=== PATIENT | male | born 1965 | race Caucasian/White ===

== ENCOUNTER 2018-01-25 11:42 | Inpatient (IN) | payer OTHER ==
[2018-01-25 11:44] VITALS: BMI 27.8
[2018-01-25] MEDS ORDERED: Aspirin 325 mg EC Tablets PO STA (11:48)
[2018-01-25] MEDS ORDERED: Heparin25000 units/250ml 1/2NS 25,000 UNITS/250 ML BAG IV STA (11:48)
[2018-01-25 11:58] LABS: BASO % 0.3 % (0.0-2.0); EOS # 0.2 K/uL (0.0-0.7); EOS % 1.3 % (0.0-4.0); HEMOGLOBIN 14.5 g/dL (12.0-18.0); LYMPH % 31.3 % (20.0-40.0); MEAN CELL VOLUME 87.7 fL (80.0-94.0); MEAN CORPUSCULAR HEMOGLOBIN 29.6 pg (27.0-31.0); MEAN CORPUSCULAR HGB CONC 33.8 g/dL (33.0-37.0); MEAN PLATELET VOLUME 8.1 fL (7.2-11.7); MONO # 0.7 K/uL (0.0-0.8); MONO % 5.5 % (0.0-10.0); NEUT # 7.9 K/uL (1.8-7.0); NEUT % 61.6 % (50.0-75.0); NRBC % 0.1 % (0.0-2.0); RBC 4.9 Mil/uL (4.40-5.90); RED CELL DISTRIBUTION WIDTH 14.4 % (11.5-14.5); WHITE BLOOD COUNT 12.8 K/uL (4.8-10.8)
[2018-01-25] MEDS ORDERED: Midazolam 2 MG/2 ML VIAL ONE (12:00)
--- NOTE | 2018-01-25 12:00 | C.PDOC ---
History Of Present Illness 52 y/o male brought to ER by ambulance for evaluation of chest pain which began at 10:30 am today. 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 Patient reports that the pain was 10/10, he is unable to describe the pain. He notes that he was sweating when he had the pain. He notes that he has history of smoking. Currently, he denies having chest pain, shortness of breath, fever, chills, nausea, vomiting, leg swelling, hx of cardiac disease and stents. Of note, Code Heart was called at 11:40 AM. Time Seen by Provider: 01/25/18 11:47 Chief Complaint (Nursing): Chest Pain Past Medical History Reviewed: Historical Data, Nursing Documentation, Vital Signs - Medical History PMH: No Chronic Diseases Other Surgeries: Hx of surgeries Family History: States: No Known Family Hx Review Of Systems Except As Marked, All Systems Reviewed And Found Negative. Constitutional: Negative for: Fever, Chills Cardiovascular: Positive for: Chest Pain (currently resolved) Respiratory: Negative for: Shortness of Breath Gastrointestinal: Negative for: Nausea, Vomiting Physical Exam - Physical Exam Appears: Non-toxic, No Acute Distress, Other (awake,alert, oriented x3) Skin: Normal Color, Warm, Dry Head: Atraumatic, Normacephalic Eye(s): bilateral: Normal Inspection Neck: Supple Chest: Symmetrical Cardiovascular: Rhythm Regular Respiratory: Normal Breath Sounds, No Rales, No Rhonchi, No Wheezing Gastrointestinal/Abdominal: Normal Exam, Soft, No Tenderness, No Guarding, No Rebound Extremity: Normal ROM, Other (no pitting edema) Neurological/Psych: Oriented x3, Normal Speech ED Course And Treatment - Laboratory Results Result Diagrams: 01/25/18 11:54 01/25/18 11:54 ECG: Interpreted By Me, Viewed By Me ECG Rhythm: Sinus Rhythm Interpretation Of ECG: [facility] [place] EKG- Transmitted EKG - NSR [address] elevations in anterior leads and T wave inversions in inferior leads, (+)STEMI. EKG- NSR 82 bpm normal intervals, normal axises, ST elevations in anterior leads and T wave inversions in lateral leads, positive for ischemia Rate From EC Medical Decision Making Medical Decision Making: Plan: --Labs --ECG --CXR --Brilinta PO --Aspirin PO --Heparin IV Updates: 11:[address] Hillman, bottle house pumper, evaluated patient in ER, is taking pt to the laboratory courier. 11:50 AM Patient has been admitted under the service of for acute myocardial infarction and chest pain. Disposition - Disposition Disposition: HOSPITALIZED Disposition Time: 11:50 Condition: STABLE - POA Core Measure Indicators: Code Heart - Clinical Impression Clinical Impression: Chest pain, STEMI (ST elevation myocardial infarction) - Scribe Statement The provider has reviewed the documentation as recorded by the Carlyn Hughes Provider Attestation: All medical record entries made by the Carlyn were at my direction and personally dictated by me. I have reviewed the chart and agree that the record accurately reflects my personal performance of the history, physical exam, medical decision making, and the department course for this patient. I have also personally directed, reviewed, and agree with the discharge instructions and disposition.
[2018-01-25 12:06] LABS: INR 1.1; PROTHROMBIN TIME 11.8 SECONDS (9.7-12.2)
[2018-01-25 12:12] LABS: ALB/GLOB RATIO 1.6 (1.0-2.1); ALBUMIN 4.6 g/dL (3.5-5.0); ALT/SGPT 36 U/L (21-72); AST/SGOT 34 U/L (17-59); BLOOD UREA NITROGEN 18 mg/dL (9-20); CALCIUM 9.3 mg/dl (8.6-10.4); GFR NON-AFRICAN AMERICAN > 60
[2018-01-25] MEDS ORDERED: Iodixanol 320 MG/ML 100 ML BOTTLE IV ONE ×2 (12:12→12:35)
--- NOTE | 2018-01-25 13:23 | CP.PCM.PN ---
Subjective - Date & Time of Evaluation Date of Evaluation: 01/25/18 Time of Evaluation: 11:30 - Subjective Subjective: Code heart- patient en route to ED Patient is a 52 yo male with no significant history who was brought to ED by ambulance for chest pain. 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 He states that earlier in the day, he was dizzy and fell, hitting his nose. Patient also complained of sweating. he denies previous [place] or cardiac history. PMH: h/o Manrique's palsy PSH: appendectomy many yrs ago Meds: none All: NKA FH: mother- [place] SH: Drinks alcohol on weekends Former smoker Denies illicit drugs PMD: none Objective - Vital Signs/Intake and Output Vital Signs (last 24 hours): Temp Pulse Resp BP Pulse Ox 98.2 F 82 18 139/85 98 01/25/18 11:50 01/25/18 11:50 01/25/18 11:50 01/25/18 11:50 01/25/18 11:50 - Labs Labs: 01/25/18 11:54 01/25/18 11:54 PT 11.8 SECONDS (9.7-12.2) 01/25/18 11:54 INR 1.1 01/25/18 11:54 APTT 30 SECONDS (21-34) 01/25/18 11:54 - Constitutional Appears: No Acute Distress - Head Exam Head Exam: ATRAUMATIC, NORMAL INSPECTION - Eye Exam Eye Exam: EOMI, Normal appearance, PERRL - ENT Exam ENT Exam: Mucous Membranes Moist - Neck Exam Neck Exam: Normal Inspection - Respiratory Exam Respiratory Exam: Clear to Ausculation Bilateral, NORMAL BREATHING PATTERN. absent: Respiratory Distress - Cardiovascular Exam Cardiovascular Exam: REGULAR RHYTHM, +S1, +S2 - GI/Abdominal Exam GI & Abdominal Exam: Soft. absent: Tenderness - Rectal Exam Rectal Exam: Deferred - Extremities Exam Extremities Exam: Normal Inspection - Back Exam Back Exam: NORMAL INSPECTION - Neurological Exam Neurological Exam: Alert, Awake, CN II-XII Intact, Oriented x3 - Psychiatric Exam Psychiatric exam: Normal Affect, Normal Mood - Skin Skin Exam: Dry, Intact, Normal Color, Warm Assessment and Plan - Assessment and Plan (Free Text) Assessment: Patient is 52 yo male who was brought in with chest pain. Code heart called for ST elevations on EMS EKG. Patient taken to poultry farm laborer. Plan: STEMI - Activate code heart - Given full dose ASA and nitroglycerin en route - Brilinta 180 mg PO stat - Heparin 5000 units IV stat - Cardiology consulted (Rafy)- cardiac cath
--- NOTE | 2018-01-25 13:39 | CP.PCM.CON ---
<Bernie Turner - Last Filed: 01/25/18 15:46> History of Present Illness - History of Present Illness History of Present Illness: Cardiology Consult Note This is a 52 year old male with past medical history of swartz's palsy (2007), tobacco and cocaine use disorder, who was BIBA as a CODE HEART with an anterior wall ID noted on EKG. Patient reports he has been experiencing intermittent chest pain for the past month. He had a prior incident his month, where the chest pain was severe enough to cause syncope, resulting in the patient falling to the floor and breaking his nose. Despite this incident, the patient has not followed up with a physician or ED. This morning the patient was working, cleaning a sidewalk when he started to experience severe chest pain, associated with dyspnea and diaphoresis. Patient went home and immediately called the ambulance. En route, patient was given aspirin 325mg and nitro. In the ED, repeat EKG showed anterior wall ID. He was given Brilinta, bolused heparin and taken to the cathode builder. PMHx: As noted above PSHx: Appendectomy Meds: Denied All: NKDA SHx: Admitted to [facility] for 35 years, admits to drinking 2-4 shots of black label, 3-5 beers every Tuesday and Tuesday, admitted to cocaine use FHx: Mother - ID 50s, Diabetes; Father - diabetes; Brother -diabetes Review of Systems - Review of Systems Review of Systems: - Constitutional Constitutional: absent: Chills, Fever - EENT Eyes: absent: Change in Vision, Loss of Vision Ears: absent: Ear Discharge, Tinnitus Nose/Mouth/Throat: absent: Epistaxis, Hoarsness - Cardiovascular Cardiovascular: Chest Pain, Chest Pain with Activity, Diaphoresis, Dyspnea, Palpitations, Other. absent: Irregular Heart Rhythm, Pain Radiating to Arm/Neck/Jaw, Leg Edema, Pedal Edema, Radiating Pain, Rapid Heart Rate, Slow Heart Rate, Syncope - Respiratory Respiratory: absent: Cough, Dyspnea, Wheezing - Gastrointestinal Gastrointestinal: absent: Abdominal Pain, Diarrhea, Nausea, Vomiting - Genitourinary Genitourinary: absent: Dysuria, Hematuria - Neurological Neurological: absent: Numbness, Focal Weakness, Syncope, Tremor, Weakness - Psychiatric Psychiatric: absent: Anhedonia, Anxiety, Depression - Endocrine Endocrine: absent: Polydipsia, Polyphagia, Polyuria - Hematologic/Lymphatic Hematologic: absent: Easy Bleeding, Easy Bruising, Lymphadenopathy Past Patient History - Past Social History Smoking Status: Heavy Smoker > 10 Cigarettes Daily - PSYCHIATRIC Hx Substance Use: No - SURGICAL HISTORY Hx Surgeries: Yes Hx Appendectomy: Yes - ANESTHESIA Hx Anesthesia: Yes Hx Anesthesia Reactions: No Hx Malignant Hyperthermia: No Meds Allergies/Adverse Reactions: Allergies Allergy/AdvReac Type Severity Reaction Status Date / Time No Known Allergies Allergy Verified 01/25/18 11:44 - Medications Medications: Current Medications Aspirin (Aspirin Chewable) 81 mg PO DAILY SUDEEP Carvedilol (Coreg) 3.25 mg PO BID [facility] Sodium Chloride (Sodium Chloride 0.9%) 1,000 mls @ 80 mls/hr IV .[id number] SUDEEP Stop: 01/26/18 02:01 Losartan Potassium (Cozaar) 12.5 mg PO DAILY SUDEEP Rosuvastatin Calcium (Crestor) 40 mg PO HS SUDEEP Ticagrelor (Brilinta) 90 mg PO BID SUDEEP Physical Exam - Additional Findings Additional findings: - Constitutional Appears: No Acute Distress - Head Exam Head Exam: NORMAL INSPECTION, NORMOCEPHALIC - Eye Exam Eye Exam: EOMI, PERRL Pupil Exam: NORMAL ACCOMODATION - ENT Exam ENT Exam: Mucous Membranes Moist - Respiratory Exam Respiratory Exam: Clear to Auscultation Bilateral, NORMAL BREATHING PATTERN. absent: Decreased Breath Sounds, Wheezes - Cardiovascular Exam Cardiovascular Exam: +S1, +S2 - GI/Abdominal Exam GI & Abdominal Exam: Normal Bowel Sounds, Soft. absent: Distended, Tenderness - Extremities Exam Extremities exam: right groin dressing intact, some blood noted, no hematoma . Positive for: normal inspection, pedal pulses present. Negative for: pedal edema, tenderness - Back Exam Back exam: NORMAL INSPECTION - Neurological Exam Neurological exam: Alert, Oriented x3 - Psychiatric Exam Psychiatric exam: Normal Affect, Normal Mood - Skin Skin Exam: Dry, Intact, Normal Color, Warm Results - Vital Signs Recent Vital Signs: Last Vital Signs Temp 98.2 F 01/25/18 11:50 Pulse 82 01/25/18 11:50 Resp 18 01/25/18 11:50 BP 139/85 01/25/18 11:50 Pulse Ox 98 01/25/18 11:50 - Labs Result Diagrams: 01/25/18 11:54 11/28/18 11:54 Labs: Laboratory Results - last 24 hr 01/25/18 01/25/18 01/25/18 11:54 11:54 11:54 WBC 12.8 H RBC 4.90 Hgb 14.5 Hct 43.0 MCV 87.7 MCH 29.6 MCHC 33.8 RDW 14.4 Plt Count 274 MPV 8.1 Neut % (Auto) 61.6 Lymph % (Auto) 31.3 Stearns % (Auto) 5.5 Eos % (Auto) 1.3 Baso % (Auto) 0.3 Neut # (Auto) 7.9 H Lymph # (Auto) 4.0 Stearns # (Auto) 0.7 Eos # (Auto) 0.2 Baso # (Auto) 0.0 PT 11.8 INR 1.1 APTT 30 Sodium 137 Potassium 3.9 Chloride 103 Carbon Dioxide 22 Anion Gap 16 BUN 18 Creatinine 0.8 Est GFR ( Amer) > 60 Est GFR (Non-Af Amer) > 60 Random Glucose 163 H Calcium 9.3 Total Bilirubin 0.5 AST 34 ALT 36 Alkaline Phosphatase 76 Troponin I Total Protein 7.4 Albumin 4.6 Globulin 2.9 Albumin/Globulin Ratio 1.6 Blood Type Antibody Screen 01/25/18 01/25/18 11:54 11:54 WBC RBC Hgb Hct MCV MCH MCHC RDW Plt Count MPV Neut % (Auto) Lymph % (Auto) Stearns % (Auto) Eos % (Auto) Baso % (Auto) Neut # (Auto) Lymph # (Auto) Stearns # (Auto) Eos # (Auto) Baso # (Auto) PT INR APTT Sodium Potassium Chloride Carbon Dioxide Anion Gap BUN Creatinine Est GFR ( Amer) Est GFR (Non-Af Amer) Random Glucose Calcium Total Bilirubin AST ALT Alkaline Phosphatase Troponin I 0.0130 Total Protein Albumin Globulin Albumin/Globulin Ratio Blood Type B POSITIVE Antibody Screen Negative Assessment & Plan - Assessment and Plan (Free Text) Plan: Anterior Wall STEMI Imaging: - EKG (field): anterior wall ID - Repeat EKG in ED: anterior wall ID - S/P Cardiac Cath: Promixal LAD 99%, Distal LAD 99%, Circumflex 60%, RCA 100%, LVEF: 30%. 2 ISRA[place] placed: 1 proximal and 1 distal LAD - ECHO: ordered, pending results Management: - Started ASA 81mg daily, Brilinta 90mg PO BID, Cozaar 100mg PO daily, Crestor 40mg PO QHS - Bedrest 6 hours, monitor right groin for bleeding, NS @ 80cc/hr for 12 hours; f/u serial ROMIs and EKGs - Educated and stressed the importance of lifestyle changes: diet, exercise, weight loss, medication compliance, smoking cessation, drinking cessation, and cessation of cocaine use - RCA PCI placement as outpatient Cocaine Use Disorder - Refrain from beta tiffanie use - UDS ordered Impaired Glucose Tolerance - Encourage low carb diet, exercise, and weight loss - Hemoglobin A1C: 5.9 Mixed Hyperlipidemia - Cholesterol: 241, LDL: 164 Management: - Encourage low carb diet, exercise, and weight loss - Started Crestor 40mg PO QHS Tobacco Use Disorder - 1 PPD / 35 years - Smoking cessation - Nicotine patch started Case discussed with Dr. Hillman, Bernie Turner DO, PGY2 <Ash Hillman - Last Filed: 01/25/18 20:05> Meds - Medications Medications: Current Medications Aspirin (Aspirin Chewable) 81 mg PO DAILY SUDEEP Enoxaparin Sodium (Lovenox) 40 mg SC DAILY SUDEEP Sodium Chloride (Sodium Chloride 0.9%) 1,000 mls @ 80 mls/hr IV .[id number] SUDEEP Stop: 01/26/18 02:01 Last Admin: 01/25/18 14:05 Dose: 80 mls/hr Losartan Potassium (Cozaar) 12.5 mg PO DAILY SUDEEP Nicotine (Nicoderm Cq) 1 patch TD DAILY SUDEEP Rosuvastatin Calcium (Crestor) 40 mg PO HS SUDEEP Ticagrelor (Brilinta) 90 mg PO BID [facility] Last Admin: 01/25/18 17:29 Dose: 90 mg Results - Vital Signs Recent Vital Signs: Last Vital Signs Temp 98 F 01/25/18 18:00 Pulse 79 01/25/18 18:10 Resp 11 L 01/25/18 18:10 BP 154/78 H 01/25/18 18:00 Pulse Ox 97 01/25/18 18:10 - Labs Result Diagrams: 01/25/18 11:54 01/25/18 11:54 Labs: Laboratory Results - last 24 hr 01/25/18 01/25/18 01/25/18 11:54 11:54 11:54 WBC 12.8 H RBC 4.90 Hgb 14.5 Hct 43.0 MCV 87.7 MCH 29.6 MCHC 33.8 RDW 14.4 Plt Count 274 MPV 8.1 Neut % (Auto) 61.6 Lymph % (Auto) 31.3 Stearns % (Auto) 5.5 Eos % (Auto) 1.3 Baso % (Auto) 0.3 Neut # (Auto) 7.9 H Lymph # (Auto) 4.0 Stearns # (Auto) 0.7 Eos # (Auto) 0.2 Baso # (Auto) 0.0 PT 11.8 INR 1.1 APTT 30 Sodium 137 Potassium 3.9 Chloride 103 Carbon Dioxide 22 Anion Gap 16 BUN 18 Creatinine 0.8 Est GFR ( Amer) > 60 Est GFR (Non-Af Amer) > 60 Random Glucose 163 H Hemoglobin A1c Calcium 9.3 Total Bilirubin 0.5 AST 34 ALT 36 Alkaline Phosphatase 76 Total Creatine Kinase CK-MB (Mass) Troponin I Total Protein 7.4 Albumin 4.6 Globulin 2.9 Albumin/Globulin Ratio 1.6 Triglycerides Cholesterol LDL Cholesterol Direct HDL Cholesterol TSH 3rd Generation Blood Type Antibody Screen 01/25/18 01/25/18 01/25/18 11:54 11:54 14:09 WBC RBC Hgb Hct MCV MCH MCHC RDW Plt Count MPV Neut % (Auto) Lymph % (Auto) Stearns % (Auto) Eos % (Auto) Baso % (Auto) Neut # (Auto) Lymph # (Auto) Stearns # (Auto) Eos # (Auto) Baso # (Auto) PT INR APTT Sodium Potassium Chloride Carbon Dioxide Anion Gap BUN Creatinine Est GFR ( Amer) Est GFR (Non-Af Amer) Random Glucose Hemoglobin A1c Calcium Total Bilirubin AST ALT Alkaline Phosphatase Total Creatine Kinase CK-MB (Mass) Troponin I 0.0130 Total Protein Albumin Globulin Albumin/Globulin Ratio Triglycerides 139 Cholesterol 241 H LDL Cholesterol Direct 164 H HDL Cholesterol 40 TSH 3rd Generation 1.82 Blood Type B POSITIVE Antibody Screen Negative 01/25/18 01/25/18 14:09 14:09 WBC RBC Hgb Hct MCV MCH MCHC RDW Plt Count MPV Neut % (Auto) Lymph % (Auto) Stearns % (Auto) Eos % (Auto) Baso % (Auto) Neut # (Auto) Lymph # (Auto) Stearns # (Auto) Eos # (Auto) Baso # (Auto) PT INR APTT Sodium Potassium Chloride Carbon Dioxide Anion Gap BUN Creatinine Est GFR ( Amer) Est GFR (Non-Af Amer) Random Glucose Hemoglobin A1c 5.9 Calcium Total Bilirubin AST ALT Alkaline Phosphatase Total Creatine Kinase 113 CK-MB (Mass) 1.06 Troponin I < 0.0120 Total Protein Albumin Globulin Albumin/Globulin Ratio Triglycerides Cholesterol LDL Cholesterol Direct HDL Cholesterol TSH 3rd Generation Blood Type Antibody Screen Assessment & Plan - Assessment and Plan (Free Text) Plan: s/p Code heart Agree with the plan
[2018-01-25] MEDS ORDERED: Sodium Chloride 0.9% 1,000 ML IV SCH (14:00)
[2018-01-25 14:36] LABS: CK-MB 1.06 ng/mL (0.0-3.38)
--- NOTE | 2018-01-25 14:38 | CP.PCM.CON ---
<CaraLane - Last Filed: 01/25/18 15:49> History of Present Illness - History of Present Illness History of Present Illness: PGY-[address] Note [address] Guan Patient is a 52 yo male with PMHx of Manrique's palsy (2007), tobacco and cocaine use disorder, who presented to the ED as a Code Heart with an anterior wall WA noted on EKG. Patient reports he has been experiencing intermittent chest pain for the past month. He had a prior incident his month, where the chest pain was severe enough to cause syncope, resulting in the patient falling to the floor and breaking his nose. Despite this incident, the patient has not followed up with a physician or ED. This morning the patient was working, cleaning a sidewalk when he started to experience severe chest pain, associated with dyspnea and diaphoresis. Patient went home and immediately called the ambulance. Patient was given ASA 325 mg and nitroglycerin on the field. In the ED, repeat EKG showed anterior wall WA. He was given Brilinta, heparin bolus and taken to the laboratory sampler. Catheterization demonstrated 99% occlusion of proximal and distal LAD, Circumflex 60%, RCA 100%, LVEF: 30%. Patient is s/p 2 ISRAEL placement, 1 proximal and 1 distal LAD. In the ICU for further monitoring. PMHx: Manrique's palsy, substance abuse PSHx: Appendectomy Home Medications: Denied Allergies: NKDA Social Hx: Admitted to [facility] for 35 years, admits to drinking 2-4 shots of black label, 3-5 beers every Tuesday and Tuesday, admitted to cocaine use Family Hx: Mother - [place] 50s, Diabetes; Father - diabetes; Brother -diabetes Review of Systems - Review of Systems All systems: reviewed and no additional remarkable complaints except Review of Systems: as per HPI Past Patient History - Past Social History Smoking Status: Heavy Smoker > 10 Cigarettes Daily - PSYCHIATRIC Hx Substance Use: No - SURGICAL HISTORY Hx Surgeries: Yes Hx Appendectomy: Yes - ANESTHESIA Hx Anesthesia: Yes Hx Anesthesia Reactions: No Hx Malignant Hyperthermia: No Meds Allergies/Adverse Reactions: Allergies Allergy/AdvReac Type Severity Reaction Status Date / Time No Known Allergies Allergy Verified 01/25/18 11:44 - Medications Medications: Current Medications Aspirin (Aspirin Chewable) 81 mg PO DAILY [facility]EP Sodium Chloride (Sodium Chloride 0.9%) 1,000 mls @ 80 mls/hr IV .[id number] [facility] Stop: 01/26/18 02:01 Last Admin: 01/25/18 14:05 Dose: 80 mls/hr Losartan Potassium (Cozaar) 12.5 mg PO DAILY [facility] Rosuvastatin Calcium (Crestor) 40 mg PO HS [facility] Ticagrelor (Brilinta) 90 mg PO BID [facility] Physical Exam - Constitutional Appears: Non-toxic, No Acute Distress - Head Exam Head Exam: ATRAUMATIC, NORMAL INSPECTION, NORMOCEPHALIC - Eye Exam Eye Exam: EOMI, Normal appearance Pupil Exam: NORMAL ACCOMODATION - ENT Exam ENT Exam: Mucous Membranes Moist, Normal Exam - Neck Exam Neck exam: Positive for: Normal Inspection - Respiratory Exam Respiratory Exam: Clear to Auscultation Bilateral, NORMAL BREATHING PATTERN. absent: Accessory Muscle Use, Rales, Rhonchi, Wheezes, Respiratory Distress, Stridor - Cardiovascular Exam Cardiovascular Exam: +S1, +S2 - GI/Abdominal Exam GI & Abdominal Exam: Normal Bowel Sounds, Soft. absent: Distended, Firm, Guarding, Rebound, Rigid, Tenderness - Extremities Exam Extremities exam: Positive for: normal capillary refill, pedal pulses present. Negative for: calf tenderness, joint swelling, pedal edema Additional comments: right groin dressing intact, some blood noted, no hematoma - Back Exam Back exam: NORMAL INSPECTION - Neurological Exam Neurological exam: Alert, Oriented x3 - Psychiatric Exam Psychiatric exam: Normal Affect, Normal Mood - Skin Skin Exam: Dry, Intact, Normal Color, Warm Results - Vital Signs Recent Vital Signs: Last Vital Signs Temp 98.2 F 01/25/18 11:50 Pulse 82 01/25/18 11:50 Resp 18 01/25/18 11:50 BP 139/85 01/25/18 11:50 Pulse Ox 98 01/25/18 11:50 - Labs Result Diagrams: 01/25/18 11:54 01/25/18 11:54 Labs: Laboratory Results - last 24 hr 01/25/18 01/25/18 01/25/18 11:54 11:54 11:54 WBC 12.8 H RBC 4.90 Hgb 14.5 Hct 43.0 MCV 87.7 MCH 29.6 MCHC 33.8 RDW 14.4 Plt Count 274 MPV 8.1 Neut % (Auto) 61.6 Lymph % (Auto) 31.3 [place] % (Auto) 5.5 Eos % (Auto) 1.3 Baso % (Auto) 0.3 Neut # (Auto) 7.9 H Lymph # (Auto) 4.0 [place] # (Auto) 0.7 Eos # (Auto) 0.2 Baso # (Auto) 0.0 PT 11.8 INR 1.1 APTT 30 Sodium 137 Potassium 3.9 Chloride 103 Carbon Dioxide 22 Anion Gap 16 BUN 18 Creatinine 0.8 Est GFR ( Amer) > 60 Est GFR (Non-Af Amer) > 60 Random Glucose 163 H Hemoglobin A1c Calcium 9.3 Total Bilirubin 0.5 AST 34 ALT 36 Alkaline Phosphatase 76 Total Creatine Kinase CK-MB (Mass) Troponin I Total Protein 7.4 Albumin 4.6 Globulin 2.9 Albumin/Globulin Ratio 1.6 Triglycerides Cholesterol LDL Cholesterol Direct HDL Cholesterol Blood Type Antibody Screen 01/25/18 01/25/18 01/25/18 11:54 11:54 14:09 WBC RBC Hgb Hct MCV MCH MCHC RDW Plt Count MPV Neut % (Auto) Lymph % (Auto) [place] % (Auto) Eos % (Auto) Baso % (Auto) Neut # (Auto) Lymph # (Auto) [place] # (Auto) Eos # (Auto) Baso # (Auto) PT INR APTT Sodium Potassium Chloride Carbon Dioxide Anion Gap BUN Creatinine Est GFR ( Amer) Est GFR (Non-Af Amer) Random Glucose Hemoglobin A1c Calcium Total Bilirubin AST ALT Alkaline Phosphatase Total Creatine Kinase CK-MB (Mass) Troponin I 0.0130 Total Protein Albumin Globulin Albumin/Globulin Ratio Triglycerides 139 Cholesterol 241 H LDL Cholesterol Direct 164 H HDL Cholesterol 40 Blood Type B POSITIVE Antibody Screen Negative 01/25/18 01/25/18 14:09 14:09 WBC RBC Hgb Hct MCV MCH MCHC RDW Plt Count MPV Neut % (Auto) Lymph % (Auto) [place] % (Auto) Eos % (Auto) Baso % (Auto) Neut # (Auto) Lymph # (Auto) [place] # (Auto) Eos # (Auto) Baso # (Auto) PT INR APTT Sodium Potassium Chloride Carbon Dioxide Anion Gap BUN Creatinine Est GFR ( Amer) Est GFR (Non-Af Amer) Random Glucose Hemoglobin A1c 5.9 Calcium Total Bilirubin AST ALT Alkaline Phosphatase Total Creatine Kinase 113 CK-MB (Mass) 1.06 Troponin I < 0.0120 Total Protein Albumin Globulin Albumin/Globulin Ratio Triglycerides Cholesterol LDL Cholesterol Direct HDL Cholesterol Blood Type Antibody Screen Assessment & Plan - Assessment and Plan (Free Text) Assessment: 52 year old male with past medical history of manrique's palsy (2007), tobacco and cocaine use disorder, who was BIBA as a CODE HEART with an anterior wall WA noted on EKG. given Brilinta, bolused heparin and taken to the laboratory sampler. Patient s/p catheterization: Promixal LAD 99%, Distal LAD 99%, Circumflex 60%, RCA 100%, LVEF: 30%. 2 ISRAEL placed: 1 proximal and 1 distal LAD. Remains in ICU for further monitoring. Plan: Neuro: -stable; patient alert and oriented x 3 -no focal deficits noted CV: Anterior Wall STEMI - EKG (field): anterior wall WA - Repeat EKG in ED: anterior wall WA - S/P Cardiac Cath: Promixal LAD 99%, Distal LAD 99%, Circumflex 60%, RCA 100%, LVEF: 30%. 2 ISRAEL placed: 1 proximal and 1 distal LAD - ECHO: ordered, pending results - ASA 81mg daily, Brilinta 90mg PO BID, Cozaar 100mg PO daily, Crestor 40mg PO QHS - Bedrest 6 hours, monitor right groin for bleeding, NS @ 80cc/hr for 12 hours; f/u serial ROMIs and EKGs - Educated and stressed the importance of lifestyle changes: diet, exercise, weight loss, medication compliance, smoking cessation, drinking cessation, and cessation of cocaine use - RCA PCI placement as outpatient Cocaine Use Disorder - Refrain from beta tiffanie use - UDS ordered Mixed Hyperlipidemia - Cholesterol: 241, LDL: 164 - Encourage low carb diet, exercise, and weight loss - Started Crestor 40mg PO QHS Pulm: Tobacco Use Disorder - 1 PPD / 35 years - Smoking cessation - Nicotine patch started Endo: Impaired Glucose Tolerance - Encourage low carb diet, exercise, and weight loss - Hemoglobin A1C: 5.9 PPx, Diet, Disposition - DVT ppx: lovenox, scds - Diet: HHD Case discussed with Dr. Roge Marroquin DO, PGY-1 <Ramírez Guan - Last Filed: 01/25/18 17:29> Meds - Medications Medications: Current Medications Aspirin (Aspirin Chewable) 81 mg PO DAILY [facility] Enoxaparin Sodium (Lovenox) 40 mg SC DAILY [facility] Sodium Chloride (Sodium Chloride 0.9%) 1,000 mls @ 80 mls/hr IV .[id number] [facility]EP Stop: 01/26/18 02:01 Last Admin: 01/25/18 14:05 Dose: 80 mls/hr Losartan Potassium (Cozaar) 12.5 mg PO DAILY [facility] Nicotine (Nicoderm Cq) 1 patch TD DAILY [facility] Rosuvastatin Calcium (Crestor) 40 mg PO HS [facility] Ticagrelor (Brilinta) 90 mg PO BID [facility] Results - Vital Signs Recent Vital Signs: Last Vital Signs Temp 98 F 01/25/18 17:00 Pulse 69 01/25/18 17:10 Resp 12 01/25/18 17:10 BP 147/78 01/25/18 17:00 Pulse Ox 100 01/25/18 17:10 - Labs Result Diagrams: 01/25/18 11:54 01/25/18 11:54 Labs: Laboratory Results - last 24 hr 01/25/18 01/25/18 01/25/18 11:54 11:54 11:54 WBC 12.8 H RBC 4.90 Hgb 14.5 Hct 43.0 MCV 87.7 MCH 29.6 MCHC 33.8 RDW 14.4 Plt Count 274 MPV 8.1 Neut % (Auto) 61.6 Lymph % (Auto) 31.3 [place] % (Auto) 5.5 Eos % (Auto) 1.3 Baso % (Auto) 0.3 Neut # (Auto) 7.9 H Lymph # (Auto) 4.0 [place] # (Auto) 0.7 Eos # (Auto) 0.2 Baso # (Auto) 0.0 PT 11.8 INR 1.1 APTT 30 Sodium 137 Potassium 3.9 Chloride 103 Carbon Dioxide 22 Anion Gap 16 BUN 18 Creatinine 0.8 Est GFR ( Amer) > 60 Est GFR (Non-Af Amer) > 60 Random Glucose 163 H Hemoglobin A1c Calcium 9.3 Total Bilirubin 0.5 AST 34 ALT 36 Alkaline Phosphatase 76 Total Creatine Kinase CK-MB (Mass) Troponin I Total Protein 7.4 Albumin 4.6 Globulin 2.9 Albumin/Globulin Ratio 1.6 Triglycerides Cholesterol LDL Cholesterol Direct HDL Cholesterol TSH 3rd Generation Blood Type Antibody Screen 01/25/18 01/25/18 01/25/18 11:54 11:54 14:09 WBC RBC Hgb Hct MCV MCH MCHC RDW Plt Count MPV Neut % (Auto) Lymph % (Auto) [place] % (Auto) Eos % (Auto) Baso % (Auto) Neut # (Auto) Lymph # (Auto) [place] # (Auto) Eos # (Auto) Baso # (Auto) PT INR APTT Sodium Potassium Chloride Carbon Dioxide Anion Gap BUN Creatinine Est GFR ( Amer) Est GFR (Non-Af Amer) Random Glucose Hemoglobin A1c Calcium Total Bilirubin AST ALT Alkaline Phosphatase Total Creatine Kinase CK-MB (Mass) Troponin I 0.0130 Total Protein Albumin Globulin Albumin/Globulin Ratio Triglycerides 139 Cholesterol 241 H LDL Cholesterol Direct 164 H HDL Cholesterol 40 TSH 3rd Generation 1.82 Blood Type B POSITIVE Antibody Screen Negative 01/25/18 01/25/18 14:09 14:09 WBC RBC Hgb Hct MCV MCH MCHC RDW Plt Count MPV Neut % (Auto) Lymph % (Auto) [place] % (Auto) Eos % (Auto) Baso % (Auto) Neut # (Auto) Lymph # (Auto) [place] # (Auto) Eos # (Auto) Baso # (Auto) PT INR APTT Sodium Potassium Chloride Carbon Dioxide Anion Gap BUN Creatinine Est GFR ( Amer) Est GFR (Non-Af Amer) Random Glucose Hemoglobin A1c 5.9 Calcium Total Bilirubin AST ALT Alkaline Phosphatase Total Creatine Kinase 113 CK-MB (Mass) 1.06 Troponin I < 0.0120 Total Protein Albumin Globulin Albumin/Globulin Ratio Triglycerides Cholesterol LDL Cholesterol Direct HDL Cholesterol TSH 3rd Generation Blood Type Antibody Screen Attending/Attestation - Attestation I have personally seen and examined this patient.: Yes I have fully participated in the care of the patient.: Yes I have reviewed all pertinent clinical information: Yes Notes (Text): 01/25/18 17:28 patient seen and examined S/P Cardiac Cath: Promixal LAD 99%, Distal LAD 99%, Circumflex 60%, RCA 100%, LVEF: 30%. 2 ISRAEL placed: 1 proximal and 1 distal LAD Continue anticoagulation Echocardiogram
--- NOTE | 2018-01-25 14:39 | RAD ---
Date of service: 01/25/2018 PROCEDURE: CHEST RADIOGRAPH, 1 VIEW HISTORY: chest pain COMPARISON: None available. FINDINGS: LUNGS: Clear. PLEURA: No pneumothorax or pleural fluid seen. CARDIOVASCULAR: No aortic atherosclerotic calcification present. Normal. OSSEOUS STRUCTURES: No significant abnormalities. VISUALIZED UPPER ABDOMEN: Normal. OTHER FINDINGS: None. IMPRESSION: No active disease.
[2018-01-25] MEDS ORDERED: Eptifibatide 20 mg/10mL Inj IVP ONE (18:00)
[2018-01-25 20:34] LABS: BARBITURATES, UR NEGATIVE (NEGATIVE); OPIATES, UR NEGATIVE (NEGATIVE); PHENCYCLIDINE, UR NEGATIVE (NEGATIVE)
[2018-01-25 20:37] LABS: BENZODIAZEPINES, UR POSITIVE (NEGATIVE)
[2018-01-25 21:43] LABS: CK-MB 31.2 ng/mL (0.0-3.38)
[2018-01-25 21:47] LABS: TROPONIN I 10.5 ng/mL (0.00-0.120)
[2018-01-26 05:58] LABS: BASO # 0.1 K/uL (0.0-0.2); BASO % 0.5 % (0.0-2.0); EOS # 0.2 K/uL (0.0-0.7); EOS % 1.2 % (0.0-4.0); HEMOGLOBIN 13.6 g/dL (12.0-18.0); LYMPH # 3.3 K/uL (1.0-4.3); LYMPH % 25.2 % (20.0-40.0); MEAN CELL VOLUME 86.8 fL (80.0-94.0); MEAN CORPUSCULAR HEMOGLOBIN 30.4 pg (27.0-31.0); MEAN PLATELET VOLUME 8.2 fL (7.2-11.7); MONO # 0.8 K/uL (0.0-0.8); MONO % 6.4 % (0.0-10.0); NEUT # 8.8 K/uL (1.8-7.0); NEUT % 66.7 % (50.0-75.0); RBC 4.46 Mil/uL (4.40-5.90); RED CELL DISTRIBUTION WIDTH 14.3 % (11.5-14.5); WHITE BLOOD COUNT 13.3 K/uL (4.8-10.8)
[2018-01-26 06:20] LABS: ALB/GLOB RATIO 1.5 (1.0-2.1); ALBUMIN 3.6 g/dL (3.5-5.0); ALT/SGPT 41 U/L (21-72); AST/SGOT 67 U/L (17-59); BLOOD UREA NITROGEN 14 mg/dL (9-20); CALCIUM 8.2 mg/dl (8.6-10.4); CK-MB 18.3 ng/mL (0.0-3.38); GFR NON-AFRICAN AMERICAN > 60
--- NOTE | 2018-01-26 08:03 | CP.CCUPN ---
CCU Subjective - Physician Review Critical Care Time Spent (in minutes): 35 CCU Objective - Vital Signs / Intake & Output Vital Signs (Last 4 hours): Vital Signs Pulse Resp BP Pulse Ox 01/26/18 07:00 76 15 99 01/26/18 06:43 70 13 132/71 100 01/26/18 06:00 69 12 99 01/26/18 05:43 121/65 01/26/18 05:00 70 13 98 01/26/18 04:43 73 14 123/63 98 Intake and Output (Last 8hrs): Intake & Output 01/25/18 01/26/18 01/26/18 22:59 06:59 14:59 Intake Total 680 560 Output Total 650 400 Balance 30 160 Weight 211 lb Intake: Intake, IV Amount 480 320 Left Antecubital 480 320 Oral 200 240 Output: Urine 650 400 Urine, Voided 650 400 - Medications Active Medications: Active Medications Generic Name Dose Route Start Last Admin Trade Name Freq PRN Reason Stop Dose Admin Aspirin 81 mg 01/26/18 10:00 Aspirin Chewable PO DAILY [facility] Enoxaparin Sodium 40 mg 01/26/18 10:00 Lovenox SC DAILY [facility] Losartan Potassium 12.5 mg 01/26/18 10:00 Cozaar PO DAILY [facility] Nicotine 1 patch 01/26/18 10:00 Nicoderm Cq TD DAILY [facility] Rosuvastatin Calcium 40 mg 01/25/18 22:00 01/25/18 21:26 Crestor PO 40 mg HS SUDEEP Administration Ticagrelor 90 mg 01/25/18 18:00 01/25/18 17:29 Brilinta PO 90 mg BID SUDEEP Administration - Patient Studies Lab Studies: Lab Studies 01/26/18 01/26/18 01/25/18 Range/Units 05:45 05:45 21:41 WBC 13.3 H (4.8-10.8) K/uL RBC 4.46 (4.40-5.90) Mil/uL Hgb 13.6 (12.0-18.0) g/dL Hct 38.7 (35.0-51.0) % MCV 86.8 (80.0-94.0) fL MCH 30.4 (27.0-31.0) pg MCHC 35.0 (33.0-37.0) g/dL RDW 14.3 (11.5-14.5) % Plt Count 267 (130-400) K/uL MPV 8.2 (7.2-11.7) fL Neut % (Auto) 66.7 (50.0-75.0) % Lymph % (Auto) 25.2 (20.0-40.0) % [place] % (Auto) 6.4 (0.0-10.0) % Eos % (Auto) 1.2 (0.0-4.0) % Baso % (Auto) 0.5 (0.0-2.0) % Neut # (Auto) 8.8 H (1.8-7.0) K/uL Lymph # (Auto) 3.3 (1.0-4.3) K/uL [place] # (Auto) 0.8 (0.0-0.8) K/uL Eos # (Auto) 0.2 (0.0-0.7) K/uL Baso # (Auto) 0.1 (0.0-0.2) K/uL PT (9.7-12.2) SECONDS INR APTT (21-34) SECONDS Sodium 135 (132-148) mmol/L Potassium 4.0 (3.6-5.2) mmol/L Chloride 105 (98-107) mmol/L Carbon Dioxide 21 L (22-30) mmol/L Anion Gap 13 (10-20) BUN 14 (9-20) mg/dL Creatinine 0.8 (0.8-1.5) mg/dL Est GFR ( Amer) > 60 Est GFR (Non-Af Amer) > 60 Random Glucose 106 (75-110) mg/dL Hemoglobin A1c (4.2-6.5) % Calcium 8.2 L (8.6-10.4) mg/dl Phosphorus 3.8 (2.5-4.5) mg/dL Magnesium 1.8 (1.6-2.3) mg/dL Total Bilirubin 0.5 (0.2-1.3) mg/dL AST 67 H D (17-59) U/L ALT 41 (21-72) U/L Alkaline Phosphatase 60 (38-126) U/L Total Creatine Kinase 311 H 514 H (55-170) U/L CK-MB (Mass) 18.3 H 31.2 H (0.0-3.38) ng/mL Troponin I 7.4300 H* 10.5000 H* (0.00-0.120) ng/mL Total Protein 6.0 L (6.3-8.3) g/dL Albumin 3.6 (3.5-5.0) g/dL Globulin 2.4 (2.2-3.9) gm/dL Albumin/Globulin Ratio 1.5 (1.0-2.1) Triglycerides (0-149) mg/dL Cholesterol (0-199) mg/dL LDL Cholesterol Direct (0-129) mg/dL HDL Cholesterol (30-70) mg/dL Free T4 (0.78-2.19) ng/dL TSH 3rd Generation (0.46-4.68) mIU/L Urine Opiates Screen (NEGATIVE) Urine Methadone Screen (NEGATIVE) Ur Barbiturates Screen (NEGATIVE) Ur Phencyclidine Scrn (NEGATIVE) Ur Amphetamines Screen (NEGATIVE) U Benzodiazepines Scrn (NEGATIVE) U Oth Cocaine Metabols (NEGATIVE) U Cannabinoids Screen (NEGATIVE) Blood Type Antibody Screen 01/25/18 01/25/18 01/25/18 Range/Units 20:12 20:01 14:09 WBC (4.8-10.8) K/uL RBC (4.40-5.90) Mil/uL Hgb (12.0-18.0) g/dL Hct (35.0-51.0) % MCV (80.0-94.0) fL MCH (27.0-31.0) pg MCHC (33.0-37.0) g/dL RDW (11.5-14.5) % Plt Count (130-400) K/uL MPV (7.2-11.7) fL Neut % (Auto) (50.0-75.0) % Lymph % (Auto) (20.0-40.0) % [place] % (Auto) (0.0-10.0) % Eos % (Auto) (0.0-4.0) % Baso % (Auto) (0.0-2.0) % Neut # (Auto) (1.8-7.0) K/uL Lymph # (Auto) (1.0-4.3) K/uL [place] # (Auto) (0.0-0.8) K/uL Eos # (Auto) (0.0-0.7) K/uL Baso # (Auto) (0.0-0.2) K/uL PT (9.7-12.2) SECONDS INR APTT (21-34) SECONDS Sodium (132-148) mmol/L Potassium (3.6-5.2) mmol/L Chloride (98-107) mmol/L Carbon Dioxide (22-30) mmol/L Anion Gap (10-20) BUN (9-20) mg/dL Creatinine (0.8-1.5) mg/dL Est GFR ( Amer) Est GFR (Non-Af Amer) Random Glucose (75-110) mg/dL Hemoglobin A1c (4.2-6.5) % Calcium (8.6-10.4) mg/dl Phosphorus (2.5-4.5) mg/dL Magnesium (1.6-2.3) mg/dL Total Bilirubin (0.2-1.3) mg/dL AST (17-59) U/L ALT (21-72) U/L Alkaline Phosphatase (38-126) U/L Total Creatine Kinase 113 (55-170) U/L CK-MB (Mass) 1.06 (0.0-3.38) ng/mL Troponin I < 0.0120 (0.00-0.120) ng/mL Total Protein (6.3-8.3) g/dL Albumin (3.5-5.0) g/dL Globulin (2.2-3.9) gm/dL Albumin/Globulin Ratio (1.0-2.1) Triglycerides (0-149) mg/dL Cholesterol (0-199) mg/dL LDL Cholesterol Direct (0-129) mg/dL HDL Cholesterol (30-70) mg/dL Free T4 1.01 (0.78-2.19) ng/dL TSH 3rd Generation (0.46-4.68) mIU/L Urine Opiates Screen Negative (NEGATIVE) Urine Methadone Screen Negative (NEGATIVE) Ur Barbiturates Screen Negative (NEGATIVE) Ur Phencyclidine Scrn Negative (NEGATIVE) Ur Amphetamines Screen Negative (NEGATIVE) U Benzodiazepines Scrn Positive (NEGATIVE) U Oth Cocaine Metabols Positive H (NEGATIVE) U Cannabinoids Screen Negative (NEGATIVE) Blood Type Antibody Screen 01/25/18 01/25/18 01/25/18 Range/Units 14:09 14:09 11:54 WBC (4.8-10.8) K/uL RBC (4.40-5.90) Mil/uL Hgb (12.0-18.0) g/dL Hct (35.0-51.0) % MCV (80.0-94.0) fL MCH (27.0-31.0) pg MCHC (33.0-37.0) g/dL RDW (11.5-14.5) % Plt Count (130-400) K/uL MPV (7.2-11.7) fL Neut % (Auto) (50.0-75.0) % Lymph % (Auto) (20.0-40.0) % [place] % (Auto) (0.0-10.0) % Eos % (Auto) (0.0-4.0) % Baso % (Auto) (0.0-2.0) % Neut # (Auto) (1.8-7.0) K/uL Lymph # (Auto) (1.0-4.3) K/uL [place] # (Auto) (0.0-0.8) K/uL Eos # (Auto) (0.0-0.7) K/uL Baso # (Auto) (0.0-0.2) K/uL PT (9.7-12.2) SECONDS INR APTT (21-34) SECONDS Sodium (132-148) mmol/L Potassium (3.6-5.2) mmol/L Chloride (98-107) mmol/L Carbon Dioxide (22-30) mmol/L Anion Gap (10-20) BUN (9-20) mg/dL Creatinine (0.8-1.5) mg/dL Est GFR ( Amer) Est GFR (Non-Af Amer) Random Glucose (75-110) mg/dL Hemoglobin A1c 5.9 (4.2-6.5) % Calcium (8.6-10.4) mg/dl Phosphorus (2.5-4.5) mg/dL Magnesium (1.6-2.3) mg/dL Total Bilirubin (0.2-1.3) mg/dL AST (17-59) U/L ALT (21-72) U/L Alkaline Phosphatase (38-126) U/L Total Creatine Kinase (55-170) U/L CK-MB (Mass) (0.0-3.38) ng/mL Troponin I 0.0130 (0.00-0.120) ng/mL Total Protein (6.3-8.3) g/dL Albumin (3.5-5.0) g/dL Globulin (2.2-3.9) gm/dL Albumin/Globulin Ratio (1.0-2.1) Triglycerides 139 (0-149) mg/dL Cholesterol 241 H (0-199) mg/dL LDL Cholesterol Direct 164 H (0-129) mg/dL HDL Cholesterol 40 (30-70) mg/dL Free T4 (0.78-2.19) ng/dL TSH 3rd Generation 1.82 (0.46-4.68) mIU/L Urine Opiates Screen (NEGATIVE) Urine Methadone Screen (NEGATIVE) Ur Barbiturates Screen (NEGATIVE) Ur Phencyclidine Scrn (NEGATIVE) Ur Amphetamines Screen (NEGATIVE) U Benzodiazepines Scrn (NEGATIVE) U Oth Cocaine Metabols (NEGATIVE) U Cannabinoids Screen (NEGATIVE) Blood Type Antibody Screen 01/25/18 01/25/18 01/25/18 Range/Units 11:54 11:54 11:54 WBC (4.8-10.8) K/uL RBC (4.40-5.90) Mil/uL Hgb (12.0-18.0) g/dL Hct (35.0-51.0) % MCV (80.0-94.0) fL MCH (27.0-31.0) pg MCHC (33.0-37.0) g/dL RDW (11.5-14.5) % Plt Count (130-400) K/uL MPV (7.2-11.7) fL Neut % (Auto) (50.0-75.0) % Lymph % (Auto) (20.0-40.0) % [place] % (Auto) (0.0-10.0) % Eos % (Auto) (0.0-4.0) % Baso % (Auto) (0.0-2.0) % Neut # (Auto) (1.8-7.0) K/uL Lymph # (Auto) (1.0-4.3) K/uL [place] # (Auto) (0.0-0.8) K/uL Eos # (Auto) (0.0-0.7) K/uL Baso # (Auto) (0.0-0.2) K/uL PT 11.8 (9.7-12.2) SECONDS INR 1.1 APTT 30 (21-34) SECONDS Sodium 137 (132-148) mmol/L Potassium 3.9 (3.6-5.2) mmol/L Chloride 103 (98-107) mmol/L Carbon Dioxide 22 (22-30) mmol/L Anion Gap 16 (10-20) BUN 18 (9-20) mg/dL Creatinine 0.8 (0.8-1.5) mg/dL Est GFR ( Amer) > 60 Est GFR (Non-Af Amer) > 60 Random Glucose 163 H (75-110) mg/dL Hemoglobin A1c (4.2-6.5) % Calcium 9.3 (8.6-10.4) mg/dl Phosphorus (2.5-4.5) mg/dL Magnesium (1.6-2.3) mg/dL Total Bilirubin 0.5 (0.2-1.3) mg/dL AST 34 (17-59) U/L ALT 36 (21-72) U/L Alkaline Phosphatase 76 (38-126) U/L Total Creatine Kinase (55-170) U/L CK-MB (Mass) (0.0-3.38) ng/mL Troponin I (0.00-0.120) ng/mL Total Protein 7.4 (6.3-8.3) g/dL Albumin 4.6 (3.5-5.0) g/dL Globulin 2.9 (2.2-3.9) gm/dL Albumin/Globulin Ratio 1.6 (1.0-2.1) Triglycerides (0-149) mg/dL Cholesterol (0-199) mg/dL LDL Cholesterol Direct (0-129) mg/dL HDL Cholesterol (30-70) mg/dL Free T4 (0.78-2.19) ng/dL TSH 3rd Generation (0.46-4.68) mIU/L Urine Opiates Screen (NEGATIVE) Urine Methadone Screen (NEGATIVE) Ur Barbiturates Screen (NEGATIVE) Ur Phencyclidine Scrn (NEGATIVE) Ur Amphetamines Screen (NEGATIVE) U Benzodiazepines Scrn (NEGATIVE) U Oth Cocaine Metabols (NEGATIVE) U Cannabinoids Screen (NEGATIVE) Blood Type B POSITIVE Antibody Screen Negative 01/25/18 Range/Units 11:54 WBC 12.8 H (4.8-10.8) K/uL RBC 4.90 (4.40-5.90) Mil/uL Hgb 14.5 (12.0-18.0) g/dL Hct 43.0 (35.0-51.0) % MCV 87.7 (80.0-94.0) fL MCH 29.6 (27.0-31.0) pg MCHC 33.8 (33.0-37.0) g/dL RDW 14.4 (11.5-14.5) % Plt Count 274 (130-400) K/uL MPV 8.1 (7.2-11.7) fL Neut % (Auto) 61.6 (50.0-75.0) % Lymph % (Auto) 31.3 (20.0-40.0) % [place] % (Auto) 5.5 (0.0-10.0) % Eos % (Auto) 1.3 (0.0-4.0) % Baso % (Auto) 0.3 (0.0-2.0) % Neut # (Auto) 7.9 H (1.8-7.0) K/uL Lymph # (Auto) 4.0 (1.0-4.3) K/uL [place] # (Auto) 0.7 (0.0-0.8) K/uL Eos # (Auto) 0.2 (0.0-0.7) K/uL Baso # (Auto) 0.0 (0.0-0.2) K/uL PT (9.7-12.2) SECONDS INR APTT (21-34) SECONDS Sodium (132-148) mmol/L Potassium (3.6-5.2) mmol/L Chloride (98-107) mmol/L Carbon Dioxide (22-30) mmol/L Anion Gap (10-20) BUN (9-20) mg/dL Creatinine (0.8-1.5) mg/dL Est GFR ( Amer) Est GFR (Non-Af Amer) Random Glucose (75-110) mg/dL Hemoglobin A1c (4.2-6.5) % Calcium (8.6-10.4) mg/dl Phosphorus (2.5-4.5) mg/dL Magnesium (1.6-2.3) mg/dL Total Bilirubin (0.2-1.3) mg/dL AST (17-59) U/L ALT (21-72) U/L Alkaline Phosphatase (38-126) U/L Total Creatine Kinase (55-170) U/L CK-MB (Mass) (0.0-3.38) ng/mL Troponin I (0.00-0.120) ng/mL Total Protein (6.3-8.3) g/dL Albumin (3.5-5.0) g/dL Globulin (2.2-3.9) gm/dL Albumin/Globulin Ratio (1.0-2.1) Triglycerides (0-149) mg/dL Cholesterol (0-199) mg/dL LDL Cholesterol Direct (0-129) mg/dL HDL Cholesterol (30-70) mg/dL Free T4 (0.78-2.19) ng/dL TSH 3rd Generation (0.46-4.68) mIU/L Urine Opiates Screen (NEGATIVE) Urine Methadone Screen (NEGATIVE) Ur Barbiturates Screen (NEGATIVE) Ur Phencyclidine Scrn (NEGATIVE) Ur Amphetamines Screen (NEGATIVE) U Benzodiazepines Scrn (NEGATIVE) U Oth Cocaine Metabols (NEGATIVE) U Cannabinoids Screen (NEGATIVE) Blood Type Antibody Screen Laboratory Results - last 24 hr 01/25/18 01/25/18 01/25/18 11:54 11:54 11:54 WBC 12.8 H RBC 4.90 Hgb 14.5 Hct 43.0 MCV 87.7 MCH 29.6 MCHC 33.8 RDW 14.4 Plt Count 274 MPV 8.1 Neut % (Auto) 61.6 Lymph % (Auto) 31.3 [place] % (Auto) 5.5 Eos % (Auto) 1.3 Baso % (Auto) 0.3 Neut # (Auto) 7.9 H Lymph # (Auto) 4.0 [place] # (Auto) 0.7 Eos # (Auto) 0.2 Baso # (Auto) 0.0 PT 11.8 INR 1.1 APTT 30 Sodium 137 Potassium 3.9 Chloride 103 Carbon Dioxide 22 Anion Gap 16 BUN 18 Creatinine 0.8 Est GFR ( Amer) > 60 Est GFR (Non-Af Amer) > 60 Random Glucose 163 H Hemoglobin A1c Calcium 9.3 Phosphorus Magnesium Total Bilirubin 0.5 AST 34 ALT 36 Alkaline Phosphatase 76 Total Creatine Kinase CK-MB (Mass) Troponin I Total Protein 7.4 Albumin 4.6 Globulin 2.9 Albumin/Globulin Ratio 1.6 Triglycerides Cholesterol LDL Cholesterol Direct HDL Cholesterol Free T4 TSH 3rd Generation Urine Opiates Screen Urine Methadone Screen Ur Barbiturates Screen Ur Phencyclidine Scrn Ur Amphetamines Screen U Benzodiazepines Scrn U Oth Cocaine Metabols U Cannabinoids Screen Blood Type Antibody Screen 01/25/18 01/25/18 01/25/18 11:54 11:54 14:09 WBC RBC Hgb Hct MCV MCH MCHC RDW Plt Count MPV Neut % (Auto) Lymph % (Auto) [place] % (Auto) Eos % (Auto) Baso % (Auto) Neut # (Auto) Lymph # (Auto) [place] # (Auto) Eos # (Auto) Baso # (Auto) PT INR APTT Sodium Potassium Chloride Carbon Dioxide Anion Gap BUN Creatinine Est GFR ( Amer) Est GFR (Non-Af Amer) Random Glucose Hemoglobin A1c Calcium Phosphorus Magnesium Total Bilirubin AST ALT Alkaline Phosphatase Total Creatine Kinase CK-MB (Mass) Troponin I 0.0130 Total Protein Albumin Globulin Albumin/Globulin Ratio Triglycerides 139 Cholesterol 241 H LDL Cholesterol Direct 164 H HDL Cholesterol 40 Free T4 TSH 3rd Generation 1.82 Urine Opiates Screen Urine Methadone Screen Ur Barbiturates Screen Ur Phencyclidine Scrn Ur Amphetamines Screen U Benzodiazepines Scrn U Oth Cocaine Metabols U Cannabinoids Screen Blood Type B POSITIVE Antibody Screen Negative 01/25/18 01/25/18 01/25/18 14:09 14:09 20:01 WBC RBC Hgb Hct MCV MCH MCHC RDW Plt Count MPV Neut % (Auto) Lymph % (Auto) [place] % (Auto) Eos % (Auto) Baso % (Auto) Neut # (Auto) Lymph # (Auto) [place] # (Auto) Eos # (Auto) Baso # (Auto) PT INR APTT Sodium Potassium Chloride Carbon Dioxide Anion Gap BUN Creatinine Est GFR ( Amer) Est GFR (Non-Af Amer) Random Glucose Hemoglobin A1c 5.9 Calcium Phosphorus Magnesium Total Bilirubin AST ALT Alkaline Phosphatase Total Creatine Kinase 113 CK-MB (Mass) 1.06 Troponin I < 0.0120 Total Protein Albumin Globulin Albumin/Globulin Ratio Triglycerides Cholesterol LDL Cholesterol Direct HDL Cholesterol Free T4 TSH 3rd Generation Urine Opiates Screen Negative Urine Methadone Screen Negative Ur Barbiturates Screen Negative Ur Phencyclidine Scrn Negative Ur Amphetamines Screen Negative U Benzodiazepines Scrn Positive U Oth Cocaine Metabols Positive H U Cannabinoids Screen Negative Blood Type Antibody Screen 01/25/18 01/25/18 01/26/18 20:12 21:41 05:45 WBC 13.3 H RBC 4.46 Hgb 13.6 Hct 38.7 MCV 86.8 MCH 30.4 MCHC 35.0 RDW 14.3 Plt Count 267 MPV 8.2 Neut % (Auto) 66.7 Lymph % (Auto) 25.2 [place] % (Auto) 6.4 Eos % (Auto) 1.2 Baso % (Auto) 0.5 Neut # (Auto) 8.8 H Lymph # (Auto) 3.3 [place] # (Auto) 0.8 Eos # (Auto) 0.2 Baso # (Auto) 0.1 PT INR APTT Sodium Potassium Chloride Carbon Dioxide Anion Gap BUN Creatinine Est GFR ( Amer) Est GFR (Non-Af Amer) Random Glucose Hemoglobin A1c Calcium Phosphorus Magnesium Total Bilirubin AST ALT Alkaline Phosphatase Total Creatine Kinase 514 H CK-MB (Mass) 31.2 H Troponin I 10.5000 H* Total Protein Albumin Globulin Albumin/Globulin Ratio Triglycerides Cholesterol LDL Cholesterol Direct HDL Cholesterol Free T4 1.01 TSH 3rd Generation Urine Opiates Screen Urine Methadone Screen Ur Barbiturates Screen Ur Phencyclidine Scrn Ur Amphetamines Screen U Benzodiazepines Scrn U Oth Cocaine Metabols U Cannabinoids Screen Blood Type Antibody Screen 01/26/18 05:45 WBC RBC Hgb Hct MCV MCH MCHC RDW Plt Count MPV Neut % (Auto) Lymph % (Auto) [place] % (Auto) Eos % (Auto) Baso % (Auto) Neut # (Auto) Lymph # (Auto) [place] # (Auto) Eos # (Auto) Baso # (Auto) PT INR APTT Sodium 135 Potassium 4.0 Chloride 105 Carbon Dioxide 21 L Anion Gap 13 BUN 14 Creatinine 0.8 Est GFR ( Amer) > 60 Est GFR (Non-Af Amer) > 60 Random Glucose 106 Hemoglobin A1c Calcium 8.2 L Phosphorus 3.8 Magnesium 1.8 Total Bilirubin 0.5 AST 67 H D ALT 41 Alkaline Phosphatase 60 Total Creatine Kinase 311 H CK-MB (Mass) 18.3 H Troponin I 7.4300 H* Total Protein 6.0 L Albumin 3.6 Globulin 2.4 Albumin/Globulin Ratio 1.5 Triglycerides Cholesterol LDL Cholesterol Direct HDL Cholesterol Free T4 TSH 3rd Generation Urine Opiates Screen Urine Methadone Screen Ur Barbiturates Screen Ur Phencyclidine Scrn Ur Amphetamines Screen U Benzodiazepines Scrn U Oth Cocaine Metabols U Cannabinoids Screen Blood Type Antibody Screen EKG/Cardiology Studies: Cardiology / EKG Studies 01/25/18 11:42 ELECTROCARDIOGRAM Stat Comment: Mode Of Transportation: BED Reason For Exam: chest pain 01/25/18 11:46 ELECTROCARDIOGRAM Stat Comment: Mode Of Transportation: BED Reason For Exam: chest pain 01/25/18 20:00 EKG [ELECTROCARDIOGRAM] Q8H Comment: Mode Of Transportation: Reason For Exam: s/p code heart; LAD 01/26/18 04:00 EKG [ELECTROCARDIOGRAM] Q8H Comment: Mode Of Transportation: Reason For Exam: s/p code heart; LAD Critical Care Progress Note - Nutrition Nutrition: Nutrition Category Date Time Status Heart Healthy Diet [DIET] Diets 01/25/18 Lunch Active
--- NOTE | 2018-01-26 09:51 | CP.PCM.PN ---
Subjective - Date & Time of Evaluation Date of Evaluation: 01/26/18 Time of Evaluation: 09:15 - Subjective Subjective: Patient reported no acute events overnight. He says he felt well. Denied chest pain, denied shortness of breath, denied palpitation. As we talked he explained that he did use cocaine recently - he was hesitant to say this before because of family in room. We explained that cocaine does increase the risk greatly of serious cardiac p roblems. He is S/P two stents to the LAD and has an RCA that is 100% occludded. Objective - Vital Signs/Intake and Output Vital Signs (last 24 hours): Temp Pulse Resp BP Pulse Ox 98.7 F 76 15 132/71 99 01/26/18 04:00 01/26/18 07:00 01/26/18 07:00 01/26/18 06:43 01/26/18 07:00 Intake and Output: 01/26/18 01/26/18 06:59 18:59 Intake Total 1000 Output Total 700 Balance 300 - Medications Medications: Current Medications Aspirin (Aspirin Chewable) 81 mg PO DAILY [facility] Enoxaparin Sodium (Lovenox) 40 mg SC DAILY [facility] Losartan Potassium (Cozaar) 12.5 mg PO DAILY [facility] Nicotine (Nicoderm Cq) 1 patch TD DAILY [facility] Rosuvastatin Calcium (Crestor) 40 mg PO HS [facility] Last Admin: 01/25/18 21:26 Dose: 40 mg Ticagrelor (Brilinta) 90 mg PO BID [facility] Last Admin: 01/25/18 17:29 Dose: 90 mg - Labs Labs: 01/26/18 05:45 01/26/18 05:45 PT 11.8 SECONDS (9.7-12.2) 01/25/18 11:54 INR 1.1 01/25/18 11:54 APTT 30 SECONDS (21-34) 01/25/18 11:54 - Constitutional Appears: Well, No Acute Distress - Head Exam Head Exam: NORMAL INSPECTION - Eye Exam Eye Exam: EOMI, Normal appearance - ENT Exam ENT Exam: Mucous Membranes Moist - Respiratory Exam Respiratory Exam: Clear to Ausculation Bilateral, NORMAL BREATHING PATTERN - Cardiovascular Exam Cardiovascular Exam: REGULAR RHYTHM - GI/Abdominal Exam GI & Abdominal Exam: Soft, Normal Bowel Sounds. absent: Rigid, Tenderness - Neurological Exam Neurological Exam: Alert, Awake, Oriented x3 Neuro motor strength exam: Left Upper Extremity: 5, Right Upper Extremity: 5, Left Lower Extremity: 5, Right Lower Extremity: 5 - Psychiatric Exam Psychiatric exam: Normal Affect, Normal Mood - Skin Skin Exam: Normal Color, Warm Assessment and Plan - Assessment and Plan (Free Text) Assessment: Anterior Wall STEMI 01/26: No pain this morning, he reported breathing is stable. Continue on the ASA, Brillinta as well as ARB and statin. He admitted to recent use of cocaine and the UDS is positive. Imaging: - EKG (field): anterior wall FL - Repeat EKG in ED: anterior wall FL - S/P Cardiac Cath: Promixal LAD 99%, Distal LAD 99%, Circumflex 60%, RCA 100%, LVEF: 30%. 2 [place] placed: 1 proximal and 1 distal LAD - ECHO: ordered, pending results Management: - Started ASA 81mg daily, Brilinta 90mg PO BID, Cozaar 100mg PO daily, Crestor 40mg PO QHS - Bedrest 6 hours, monitor right groin for bleeding, NS @ 80cc/hr for 12 hours; f/u serial ROMIs and EKGs - Educated and stressed the importance of lifestyle changes: diet, exercise, weight loss, medication compliance, smoking cessation, drinking cessation, and cessation of cocaine use - RCA PCI placement as outpatient Cocaine Use Disorder 01/26: Had long conversation with patient. Now on BB at this moment. Impaired Glucose Tolerance - Encourage low carb diet, exercise, and weight loss - Hemoglobin A1C: 5.9 Mixed Hyperlipidemia - Cholesterol: 241, LDL: 164 Management: - Encourage low carb diet, exercise, and weight loss - Started Crestor 40mg PO QHS Tobacco Use Disorder - 1 PPD / 35 years - Smoking cessation - Nicotine patch started
[2018-01-26] MEDS: Enoxaparin 40 mg Syringe SC SCH (09:59)
[2018-01-26] MEDS ORDERED: Losartan 12.5 MG TAB PO SCH (10:00)
--- NOTE | 2018-01-26 17:46 | CARD ---
APPROVED REPORT Date of service: 01/26/2018 EXAM: Two-dimensional and M-mode echocardiogram with Doppler and color Doppler. Other Information Quality : [employer] : INDICATION Chest Pain Non STEMI 2D DIMENSIONS IVSd1.1 (0.7-1.1cm)LVDd5.0 (3.9-5.9cm) PWd1.2 (0.7-1.1cm)LA Cxhiub01 (18-58mL) LVDs3.3 (2.5-4.0cm)FS (%) 35.2 % LVEF (%)64.3 (>50%)LVEF (Nunez's)43 % IVC0.00 cm M-Mode DIMENSIONS RVDd2.18 (2.1-3.2cm)Left Atrium (MM)2.85 (2.5-4.0cm) IVSd1.22 (0.7-1.1cm)Aortic Root3.46 (2.2-3.7cm) LVDd5.86 (4.0-5.6cm)Aortic Cusp Exc.2.25 (1.5-2.0cm) PWd0.96 (0.7-1.1cm)FS (%) 24 % LVDs4.46 (2.0-3.8cm)LVEF (%)43 (>50%) Aortic Valve AI P 1/2 Ocna701st Mitral Valve MV E Qosplgib44.2cm/sMV A Qalsklkn05.1cm/sE/A ratio0.6 TDI Lateral E' Peak V10.22cm/sMedial E' Peak V7.06cm/sE/Lateral E'4.8 E/Medial E'7.0 Tricuspid Valve TR Peak Bacnplif465sg/sTR Peak Gr.[id number] LEFT VENTRICLE The Left Ventricle is mildly dilated. There is normal left ventricular wall thickness. The systolic function is moderately impaired. Estimated Ejection Fraction - 40 - 45%. There is moderate hypokinesis in the mid-anteroseptal / inferoseptal wall compatible with coronary heart disease most likely involving the mid LAD territory. The proximal septum appears to contract relatively well. Transmitral Doppler flow pattern is Grade I-abnormal relaxation pattern. RIGHT VENTRICLE The right ventricle is normal size. The right ventricular systolic function is normal. ATRIA The left atrium size is normal. The right atrium size is normal. AORTIC VALVE The aortic valve is slightly calcified but opens well. There is trace to mild aortic regurgitation. MITRAL VALVE The mitral valve is normal in structure. Mitral regurgitation is trace. TRICUSPID VALVE The tricuspid valve is normal in structure. There is no tricuspid valve regurgitation noted. Right ventricular systolic pressure is estimated at less than 30 mmHg. PULMONIC VALVE The pulmonary valve is normal in structure. GREAT VESSELS The aortic root is normal in size. The IVC is normal in size and collapses >50% with inspiration. PERICARDIAL EFFUSION There is no pericardial effusion. <Conclusion> The Left Ventricle is mildly dilated. The systolic function is moderately impaired. Estimated Ejection Fraction - 40 - 45%. There is moderate hypokinesis in the mid-anteroseptal / inferoseptal wall compatible with coronary heart disease most likely involving the mid LAD territory. The proximal septum appears to contract relatively well. Diastolic dysfunction Grade I. The right ventricular systolic function is normal. There is trace to mild aortic regurgitation. Mitral regurgitation is trace.
--- NOTE | 2018-01-26 22:21 | CP.PCM.PN ---
Subjective - Date & Time of Evaluation Date of Evaluation: 01/26/18 Time of Evaluation: 15:15 - Subjective Subjective: Patient seen and evaluated Feels batter Objective - Vital Signs/Intake and Output Vital Signs (last 24 hours): Temp Pulse Resp BP Pulse Ox 98.7 F 76 15 132/71 99 01/26/18 04:00 01/26/18 07:00 01/26/18 07:00 01/26/18 06:43 01/26/18 07:00 Intake and Output: 01/26/18 01/26/18 06:59 18:59 Intake Total 1000 Output Total 700 Balance 300 - Medications Medications: Current Medications Aspirin (Aspirin Chewable) 81 mg PO DAILY [facility] Enoxaparin Sodium (Lovenox) 40 mg SC DAILY [facility] Losartan Potassium (Cozaar) 12.5 mg PO DAILY [facility] Nicotine (Nicoderm Cq) 1 patch TD DAILY [facility] Rosuvastatin Calcium (Crestor) 40 mg PO HS [facility] Last Admin: 01/25/18 21:26 Dose: 40 mg Ticagrelor (Brilinta) 90 mg PO BID [facility] Last Admin: 01/25/18 17:29 Dose: 90 mg - Labs Labs: 01/26/18 05:45 01/26/18 05:45 PT 11.8 SECONDS (9.7-12.2) 01/25/18 11:54 INR 1.1 01/25/18 11:54 APTT 30 SECONDS (21-34) 01/25/18 11:54 - Constitutional Appears: Well, No Acute Distress - Head Exam Head Exam: NORMAL INSPECTION - Eye Exam Eye Exam: EOMI, Normal appearance - ENT Exam ENT Exam: Mucous Membranes Moist - Respiratory Exam Respiratory Exam: Clear to Ausculation Bilateral, NORMAL BREATHING PATTERN - Cardiovascular Exam Cardiovascular Exam: REGULAR RHYTHM - GI/Abdominal Exam GI & Abdominal Exam: Soft, Normal Bowel Sounds. absent: Rigid, Tenderness - Neurological Exam Neurological Exam: Alert, Awake, Oriented x3 Neuro motor strength exam: Left Upper Extremity: 5, Right Upper Extremity: 5, Left Lower Extremity: 5, Right Lower Extremity: 5 - Psychiatric Exam Psychiatric exam: Normal Affect, Normal Mood - Skin Skin Exam: Normal Color, Warm Assessment and Plan - Assessment and Plan (Free Text) Assessment: Anterior Wall STEMI 01/26: No pain this morning, he reported breathing is stable. Continue on the ASA, Brillinta as well as ARB and statin. He admitted to recent use of cocaine and the UDS is positive. Imaging: - EKG (field): anterior wall OR - Repeat EKG in ED: anterior wall OR - S/P Cardiac Cath: Promixal LAD 99%, Distal LAD 99%, Circumflex 60%, RCA 100%, LVEF: 30%. 2 ISRA[place] placed: 1 proximal and 1 distal LAD - ECHO: ordered, pending results Management: - Started ASA 81mg daily, Brilinta 90mg PO BID, Cozaar 100mg PO daily, Crestor 40mg PO QHS - Bedrest 6 hours, monitor right groin for bleeding, NS @ 80cc/hr for 12 hours; f/u serial ROMIs and EKGs - Educated and stressed the importance of lifestyle changes: diet, exercise, weight loss, medication compliance, smoking cessation, drinking cessation, and cessation of cocaine use - RCA PCI placement as outpatient Cocaine Use Disorder 01/26: Had long conversation with patient. Now on BB at this moment. Impaired Glucose Tolerance - Encourage low carb diet, exercise, and weight loss - Hemoglobin A1C: 5.9 Mixed Hyperlipidemia - Cholesterol: 241, LDL: 164 Management: - Encourage low carb diet, exercise, and weight loss - Started Crestor 40mg PO QHS Tobacco Use Disorder - 1 PPD / 35 years - Smoking cessation - Nicotine patch started Objective - Vital Signs/Intake and Output Vital Signs (last 24 hours): Temp Pulse Resp BP Pulse Ox 98.5 F 88 18 143/80 98 01/26/18 20:00 01/26/18 20:00 01/26/18 20:00 01/26/18 20:00 01/26/18 20:00 Intake and Output: 01/26/18 01/27/18 18:59 06:59 Output Total 925 Balance -925 - Medications Medications: Current Medications Aspirin (Aspirin Chewable) 81 mg PO DAILY [facility] Last Admin: 01/26/18 09:59 Dose: 81 mg Diltiazem HCl (Cardizem) 30 mg PO TID [facility] Enoxaparin Sodium (Lovenox) 40 mg SC DAILY [facility] Last Admin: 01/26/18 09:59 Dose: 40 mg Losartan Potassium (Cozaar) 25 mg PO DAILY [facility] Nicotine (Nicoderm Cq) 1 patch TD DAILY [facility] Last Admin: 01/26/18 09:59 Dose: 1 patch Rosuvastatin Calcium (Crestor) 40 mg PO HS [facility] Last Admin: 01/26/18 21:16 Dose: 40 mg Ticagrelor (Brilinta) 90 mg PO BID [facility] Last Admin: 01/26/18 18:35 Dose: 90 mg - Labs Labs: 01/26/18 05:45 01/26/18 05:45 PT 11.8 SECONDS (9.7-12.2) 01/25/18 11:54 INR 1.1 01/25/18 11:54 APTT 30 SECONDS (21-34) 01/25/18 11:54
[2018-01-27 00:18] VITALS: RESP 16
[2018-01-27 04:31] VITALS: BP 125/71; PULSE 70; O2SAT 97
[2018-01-27 05:41] LABS: BASO % 0.2 % (0.0-2.0); EOS # 0.3 K/uL (0.0-0.7); HEMOGLOBIN 13.7 g/dL (12.0-18.0); LYMPH % 31.8 % (20.0-40.0); MEAN CELL VOLUME 87.9 fL (80.0-94.0); MEAN CORPUSCULAR HEMOGLOBIN 29.7 pg (27.0-31.0); MEAN CORPUSCULAR HGB CONC 33.7 g/dL (33.0-37.0); MEAN PLATELET VOLUME 8.4 fL (7.2-11.7); MONO # 1.2 K/uL (0.0-0.8); MONO % 9.4 % (0.0-10.0); NEUT # 7.2 K/uL (1.8-7.0); NEUT % 56.6 % (50.0-75.0); NRBC % 0.1 % (0.0-2.0); RBC 4.61 Mil/uL (4.40-5.90); RED CELL DISTRIBUTION WIDTH 13.9 % (11.5-14.5); WHITE BLOOD COUNT 12.7 K/uL (4.8-10.8)
[2018-01-27 06:09] LABS: ALB/GLOB RATIO 1.4 (1.0-2.1); ALT/SGPT 37 U/L (21-72); AST/SGOT 46 U/L (17-59); BLOOD UREA NITROGEN 14 mg/dL (9-20); CALCIUM 8.8 mg/dl (8.6-10.4); GFR NON-AFRICAN AMERICAN > 60
[2018-01-27 08:21] VITALS: TEMP 97.6
[2018-01-27] MEDS: Enoxaparin 40 mg Syringe SC SCH (09:15)
--- NOTE | 2018-01-27 11:03 | CP.PCM.PN ---
<Bernie Turner - Last Filed: 01/27/18 10:59> Subjective - Date & Time of Evaluation Date of Evaluation: 01/27/18 Time of Evaluation: 10:59 - Subjective Subjective: Cardiology Follow Up Patient was seen and examined at bedside. Patient reports he feels well. Denied any chest pain, shortness of breath, or palpitations. Objective - Vital Signs/Intake and Output Vital Signs (last 24 hours): Temp Pulse Resp BP Pulse Ox 97.6 F 70 16 125/71 97 01/27/18 08:00 01/27/18 04:00 01/27/18 04:00 01/27/18 04:00 01/27/18 04:00 Intake and Output: 01/27/18 01/27/18 06:59 18:59 Intake Total 630 500 Output Total 800 400 Balance -170 100 - Medications Medications: Current Medications Aspirin (Aspirin Chewable) 81 mg PO DAILY [facility] Last Admin: 01/27/18 09:16 Dose: 81 mg Diltiazem HCl (Cardizem) 30 mg PO TID [facility] Last Admin: 01/27/18 09:15 Dose: 30 mg Enoxaparin Sodium (Lovenox) 40 mg SC DAILY [facility] Last Admin: 01/27/18 09:15 Dose: 40 mg Losartan Potassium (Cozaar) 25 mg PO DAILY [facility] Last Admin: 01/27/18 09:20 Dose: 25 mg Nicotine (Nicoderm Cq) 1 patch TD DAILY [facility] Last Admin: 01/27/18 09:15 Dose: 1 patch Rosuvastatin Calcium (Crestor) 40 mg PO HS [facility] Last Admin: 01/26/18 21:16 Dose: 40 mg Ticagrelor (Brilinta) 90 mg PO BID [facility] - Labs Labs: 01/27/18 05:31 01/27/18 05:31 PT 11.8 SECONDS (9.7-12.2) 01/25/18 11:54 INR 1.1 01/25/18 11:54 APTT 30 SECONDS (21-34) 01/25/18 11:54 - Additional Findings Additional findings: - Constitutional Appears: No Acute Distress - Head Exam Head Exam: NORMAL INSPECTION, NORMOCEPHALIC - Eye Exam Eye Exam: EOMI, PERRL Pupil Exam: NORMAL ACCOMODATION - ENT Exam ENT Exam: Mucous Membranes Moist - Respiratory Exam Respiratory Exam: Clear to Auscultation Bilateral, NORMAL BREATHING PATTERN. absent: Decreased Breath Sounds, Wheezes - Cardiovascular Exam Cardiovascular Exam: +S1, +S2 - GI/Abdominal Exam GI & Abdominal Exam: Normal Bowel Sounds, Soft. absent: Distended, Tenderness - Extremities Exam Extremities exam: right groin dressing intact, some blood noted, no hematoma . Positive for: normal inspection, pedal pulses present. Negative for: pedal edema, tenderness - Back Exam Back exam: NORMAL INSPECTION - Neurological Exam Neurological exam: Alert, Oriented x3 - Psychiatric Exam Psychiatric exam: Normal Affect, Normal Mood - Skin Skin Exam: Dry, Intact, Normal Color, Warm Assessment and Plan - Assessment and Plan (Free Text) Plan: Anterior Wall STEMI Imaging: - EKG (field): anterior wall AK - Repeat EKG in ED: anterior wall AK - S/P Cardiac Cath 01/25/18: Promixal LAD 99%, Distal LAD 99%, Circumflex 60%, RCA 100%, LVEF: 30%. 2 ISRA[place] placed: 1 proximal and 1 distal LAD - ECHO: systolic dysfunction, LVEF 30% Management: - Started ASA 81mg daily, Brilinta 90mg PO BID, Cardizem 30mg PO TID, Cozaar 25mg PO daily, Crestor 40mg PO QHS - Bedrest 6 hours, monitor right groin for bleeding, NS @ 80cc/hr for 12 hours; f/u serial ROMIs and EKGs - Educated and stressed the importance of lifestyle changes: diet, exercise, weight loss, medication compliance, smoking cessation, drinking cessation, and cessation of cocaine use - RCA PCI placement as outpatient Cocaine Use Disorder - Refrain from beta tiffanie use - UDS positive Impaired Glucose Tolerance - Encourage low carb diet, exercise, and weight loss - Hemoglobin A1C: 5.9 Mixed Hyperlipidemia - Cholesterol: 241, LDL: 164 Management: - Encourage low carb diet, exercise, and weight loss - Started Crestor 40mg PO QHS Tobacco Use Disorder - 1 PPD / 35 years - Smoking cessation - Nicotine patch started Spoke to Álvaro congressional representative: patient will receive Brilinta for 30 days for free. The patient filled out the form to see if he qualifies for a year free. I arranged an initial appointment with me for 02/07/18 at 9am in our [facility] and for Dr. Darío Yanez 03/09/17 at 1pm in our [facility] . All this was discussed with patient. Case discussed with Bernie Feldman DO, PGY2 <Ash Hillman - Last Filed: 01/28/18 09:33> Objective - Vital Signs/Intake and Output Vital Signs (last 24 hours): Temp Pulse Resp BP Pulse Ox 97.6 F 70 16 125/71 97 01/27/18 12:00 01/27/18 04:00 01/27/18 04:00 01/27/18 04:00 01/27/18 04:00 - Labs Labs: 01/27/18 05:31 01/27/18 05:31 PT 11.8 SECONDS (9.7-12.2) 01/25/18 11:54 INR 1.1 01/25/18 11:54 APTT 30 SECONDS (21-34) 01/25/18 11:54 Assessment and Plan - Assessment and Plan (Free Text) Plan: Patient seen and evaluated personally by me Plan of care d/w the resident RCA: is a ASSISTANT LIBRARIAN. No further intervention planned for this artery as patient has good collaterals from left side
--- NOTE | 2018-01-27 12:35 | CARD ---
APPROVED REPORT Date of service: 01/26/2018 EKG Measurement Heart [id number] <Conclusion> Normal sinus rhythm Nonspecific T wave abnormality Abnormal ECG
--- NOTE | 2018-01-27 16:47 | CP.PCM.DIS ---
<Darell Fitzgerald - Last Filed: 01/27/18 16:59> Provider - Provider Date of Admission: 01/25/18 11:50 Attending physician: Wild Stahl DO Time Spent in preparation of Discharge (in minutes): 45 Hospital Course - Lab Results Lab Results: Micro Results 01/25/18 13:25 Nose MRSA Culture (Admit) - Final MRSA NOT DETECTED Most Recent Lab Values WBC 12.7 K/uL (4.8-10.8) H 01/27/18 05:31 RBC 4.61 Mil/uL (4.40-5.90) 01/27/18 05:31 Hgb 13.7 g/dL (12.0-18.0) 01/27/18 05:31 Hct 40.5 % (35.0-51.0) 01/27/18 05:31 MCV 87.9 fL (80.0-94.0) 01/27/18 05:31 MCH 29.7 pg (27.0-31.0) 01/27/18 05:31 MCHC 33.7 g/dL (33.0-37.0) 01/27/18 05:31 RDW 13.9 % (11.5-14.5) 01/27/18 05:31 Plt Count 255 K/uL (130-400) 01/27/18 05:31 MPV 8.4 fL (7.2-11.7) 01/27/18 05:31 Neut % (Auto) 56.6 % (50.0-75.0) 01/27/18 05:31 Lymph % (Auto) 31.8 % (20.0-40.0) 01/27/18 05:31 [place] % (Auto) 9.4 % (0.0-10.0) 01/27/18 05:31 Eos % (Auto) 2.0 % (0.0-4.0) 01/27/18 05:31 Baso % (Auto) 0.2 % (0.0-2.0) 01/27/18 05:31 Neut # (Auto) 7.2 K/uL (1.8-7.0) H 01/27/18 05:31 Lymph # (Auto) 4.0 K/uL (1.0-4.3) 01/27/18 05:31 [place] # (Auto) 1.2 K/uL (0.0-0.8) H 01/27/18 05:31 Eos # (Auto) 0.3 K/uL (0.0-0.7) 01/27/18 05:31 Baso # (Auto) 0.0 K/uL (0.0-0.2) 01/27/18 05:31 PT 11.8 SECONDS (9.7-12.2) 01/25/18 11:54 INR 1.1 01/25/18 11:54 APTT 30 SECONDS (21-34) 01/25/18 11:54 Sodium 137 mmol/L (132-148) 01/27/18 05:31 Potassium 3.9 mmol/L (3.6-5.2) 01/27/18 05:31 Chloride 103 mmol/L (98-107) 01/27/18 05:31 Carbon Dioxide 24 mmol/L (22-30) 01/27/18 05:31 Anion Gap 14 (10-20) 01/27/18 05:31 BUN 14 mg/dL (9-20) 01/27/18 05:31 Creatinine 0.9 mg/dL (0.8-1.5) 01/27/18 05:31 Est GFR ( Amer) > 60 01/27/18 05:31 Est GFR (Non-Af Amer) > 60 01/27/18 05:31 Random Glucose 104 mg/dL (75-110) 01/27/18 05:31 Hemoglobin A1c 5.9 % (4.2-6.5) 01/25/18 14:09 Calcium 8.8 mg/dl (8.6-10.4) 01/27/18 05:31 Phosphorus 3.5 mg/dL (2.5-4.5) 01/27/18 05:31 Magnesium 2.0 mg/dL (1.6-2.3) 01/27/18 05:31 Total Bilirubin 0.4 mg/dL (0.2-1.3) 01/27/18 05:31 AST 46 U/L (17-59) 01/27/18 05:31 ALT 37 U/L (21-72) 01/27/18 05:31 Alkaline Phosphatase 69 U/L (38-126) 01/27/18 05:31 Total Creatine Kinase 311 U/L (55-170) H 01/26/18 05:45 CK-MB (Mass) 18.3 ng/mL (0.0-3.38) H 01/26/18 05:45 Troponin I 7.4300 ng/mL (0.00-0.120) H* 01/26/18 05:45 Total Protein 6.8 g/dL (6.3-8.3) 01/27/18 05:31 Albumin 4.0 g/dL (3.5-5.0) 01/27/18 05:31 Globulin 2.9 gm/dL (2.2-3.9) 01/27/18 05:31 Albumin/Globulin Ratio 1.4 (1.0-2.1) 01/27/18 05:31 Triglycerides 139 mg/dL (0-149) 01/25/18 14:09 Cholesterol 241 mg/dL (0-199) H 01/25/18 14:09 LDL Cholesterol Direct 164 mg/dL (0-129) H 01/25/18 14:09 HDL Cholesterol 40 mg/dL (30-70) 01/25/18 14:09 Free T4 1.01 ng/dL (0.78-2.19) 01/25/18 20:12 TSH 3rd Generation 1.82 mIU/L (0.46-4.68) 01/25/18 14:09 Urine Opiates Screen Negative (NEGATIVE) 01/25/18 20:01 Urine Methadone Screen Negative (NEGATIVE) 01/25/18 20:01 Ur Barbiturates Screen Negative (NEGATIVE) 01/25/18 20:01 Ur Phencyclidine Scrn Negative (NEGATIVE) 01/25/18 20:01 Ur Amphetamines Screen Negative (NEGATIVE) 01/25/18 20:01 U Benzodiazepines Scrn Positive (NEGATIVE) 01/25/18 20:01 U Oth Cocaine Metabols Positive (NEGATIVE) H 01/25/18 20:01 U Cannabinoids Screen Negative (NEGATIVE) 01/25/18 20:01 Blood Type B POSITIVE 01/25/18 11:54 Antibody Screen Negative 01/25/18 11:54 - Hospital Course Hospital Course: Upon Admission Mr. Chavez 52 year old male with past medical history of swartz's palsy (2007), tobacco and cocaine use disorder, who was BIBA as a CODE HEART with an anterior wall MT noted on EKG. Patient reports he has been experiencing intermittent chest pain for the past month. He had a prior incident his month, where the chest pain was severe enough to cause syncope, resulting in the patient falling to the floor and breaking his nose. Despite this incident, the patient has not followed up with a physician or ED. This morning the patient was working, cleaning a sidewalk when he started to experience severe chest pain, associated with dyspnea and diaphoresis. Patient went home and immediately called the ambulance. En route, patient was given aspirin 325mg and nitro. In the ED, repeat EKG showed anterior wall MT. He was given Brilinta, bolused heparin and taken to the lab coordinator. Hospital Course Patient is 52 year old male with history of smoking and cocaine usage was admitted to [facility] for Anterior wall STEMI. Patient complained of chest pain and EKG (01/25/18) on admission to ED showed Anterior wall STEMI. Cardiology was consulted and Code heart and proper MT protocol were initiated per cardiology. ECHO (01/26/18) showed LVEF of 40-45% with hypokinesis of mid-anteroseptal/inferoseptal wall and diastolic dysfunction grade 1. Cardiac Cath was done which showed 99% occlusion of proximal/distal LAD, circumflex 60%, RCA 100% and 2 stents were placed in LAD (1 proximal, 1 distal). ICU consult for s/p cardiac cath and further treatment because patient had 2 stents placed in LAD. Patient was educated to quit tobacco and cocaine and is hemodyanically stable s/p cardiac cath with no complaints and cleared for discharge per primary and cardiology on 01/27/18. Patient will follow up with hotel security officer outpatient for RCA stent and take his medications as instructed. Discharge Plan 1. Patient is stable for discharge to home as per Dr. Stahl and Dr. Hillman. 2. Patient will follow up with Dr. Hillman as an appointment has been given to him. [facility] will [facility] with [email or web address] for followup and an appointment has been scheduled for the patient and he is aware. 3. Patient will take medications as prescribed for the following: Aspirin 81mg, Cardizem 30mg po tid, Cozaar 25mg po daily, Crestor 40mg po at night, Brilinta 90mg po bid. 4. Patient is educated to return to hospital if symptoms worsen or recur. 5. Patient understands the plan as above and agrees. Disclaimer: Written above is a synopsis of patient's current hospital admission. For full report refer to EMR Discharge Exam - Head Exam Head Exam: NORMAL INSPECTION - Eye Exam Eye Exam: EOMI, Normal appearance Pupil Exam: NORMAL ACCOMODATION, PERRL - Respiratory Exam Respiratory Exam: Clear to PA & Lateral, NORMAL BREATHING PATTERN. absent: Accessory Muscle Use, Wheezes - Cardiovascular Exam Cardiovascular Exam: REGULAR RHYTHM, +S1, +S2 - GI/Abdominal Exam GI & Abdominal Exam: Normal Bowel Sounds. absent: Rebound, Tenderness - Extremities Exam Extremities exam: normal inspection - Neurological Exam Neurological exam: Alert, Oriented x3 - Psychiatric Exam Psychiatric exam: Normal Affect, Normal Mood - Skin Skin Exam: Normal Color Discharge Plan - Discharge Medications Prescriptions: RX: Aspirin [Aspirin Chewable] 81 mg PO DAILY #30 chew RX: diltiaZEM [Cardizem] 30 mg PO TID #90 tab RX: Losartan [Cozaar] 25 mg PO DAILY #30 tab RX: Rosuvastatin Calcium [Crestor] 40 mg PO HS #30 tab RX: Ticagrelor [Brilinta] 90 mg PO BID #60 tab - Follow Up Plan Condition: STABLE Disposition: HOME/ ROUTINE Instructions: Heart Healthy Diet, Heart Attack (DC), Ticagrelor, Quitting Smoking, Aspirin, Diltiazem, Losartan, Rosuvastatin Additional Instructions: 1. Patient is stable for discharge to home as per Dr. Stahl and Dr. Hillman. 2. Patient will follow up with Dr. Hillman as an appointment has been given to him. Patient will followup with [email or web address] for followup and an appointment has been scheduled for the patient and he is aware. 3. Patient will take medications as prescribed for the following: Aspirin 81mg, Cardizem 30mg po tid, Cozaar 25mg po daily, Crestor 40mg po at night, Brilinta 90mg po bid. 4. Patient is educated to return to hospital if symptoms worsen or recur. 5. Patient understands the plan as above and agrees. <Wild Stahl - Last Filed: 01/27/18 19:15> Provider - Provider Date of Admission: 01/25/18 11:50 Attending physician: iWld Stahl DO Hospital Course - Lab Results Lab Results: Micro Results 01/25/18 13:25 Nose MRSA Culture (Admit) - Final MRSA NOT DETECTED Most Recent Lab Values WBC 12.7 K/uL (4.8-10.8) H 01/27/18 05:31 RBC 4.61 Mil/uL (4.40-5.90) 01/27/18 05:31 Hgb 13.7 g/dL (12.0-18.0) 01/27/18 05:31 Hct 40.5 % (35.0-51.0) 01/27/18 05:31 MCV 87.9 fL (80.0-94.0) 01/27/18 05:31 MCH 29.7 pg (27.0-31.0) 01/27/18 05:31 MCHC 33.7 g/dL (33.0-37.0) 01/27/18 05:31 RDW 13.9 % (11.5-14.5) 01/27/18 05:31 Plt Count 255 K/uL (130-400) 01/27/18 05:31 MPV 8.4 fL (7.2-11.7) 01/27/18 05:31 Neut % (Auto) 56.6 % (50.0-75.0) 01/27/18 05:31 Lymph % (Auto) 31.8 % (20.0-40.0) 01/27/18 05:31 [place] % (Auto) 9.4 % (0.0-10.0) 01/27/18 05:31 Eos % (Auto) 2.0 % (0.0-4.0) 01/27/18 05:31 Baso % (Auto) 0.2 % (0.0-2.0) 01/27/18 05:31 Neut # (Auto) 7.2 K/uL (1.8-7.0) H 01/27/18 05:31 Lymph # (Auto) 4.0 K/uL (1.0-4.3) 01/27/18 05:31 [place] # (Auto) 1.2 K/uL (0.0-0.8) H 01/27/18 05:31 Eos # (Auto) 0.3 K/uL (0.0-0.7) 01/27/18 05:31 Baso # (Auto) 0.0 K/uL (0.0-0.2) 01/27/18 05:31 PT 11.8 SECONDS (9.7-12.2) 01/25/18 11:54 INR 1.1 01/25/18 11:54 APTT 30 SECONDS (21-34) 01/25/18 11:54 Sodium 137 mmol/L (132-148) 01/27/18 05:31 Potassium 3.9 mmol/L (3.6-5.2) 01/27/18 05:31 Chloride 103 mmol/L (98-107) 01/27/18 05:31 Carbon Dioxide 24 mmol/L (22-30) 01/27/18 05:31 Anion Gap 14 (10-20) 01/27/18 05:31 BUN 14 mg/dL (9-20) 01/27/18 05:31 Creatinine 0.9 mg/dL (0.8-1.5) 01/27/18 05:31 Est GFR ( Amer) > 60 01/27/18 05:31 Est GFR (Non-Af Amer) > 60 01/27/18 05:31 Random Glucose 104 mg/dL (75-110) 01/27/18 05:31 Hemoglobin A1c 5.9 % (4.2-6.5) 01/25/18 14:09 Calcium 8.8 mg/dl (8.6-10.4) 01/27/18 05:31 Phosphorus 3.5 mg/dL (2.5-4.5) 01/27/18 05:31 Magnesium 2.0 mg/dL (1.6-2.3) 01/27/18 05:31 Total Bilirubin 0.4 mg/dL (0.2-1.3) 01/27/18 05:31 AST 46 U/L (17-59) 01/27/18 05:31 ALT 37 U/L (21-72) 01/27/18 05:31 Alkaline Phosphatase 69 U/L (38-126) 01/27/18 05:31 Total Creatine Kinase 311 U/L (55-170) H 01/26/18 05:45 CK-MB (Mass) 18.3 ng/mL (0.0-3.38) H 01/26/18 05:45 Troponin I 7.4300 ng/mL (0.00-0.120) H* 01/26/18 05:45 Total Protein 6.8 g/dL (6.3-8.3) 01/27/18 05:31 Albumin 4.0 g/dL (3.5-5.0) 01/27/18 05:31 Globulin 2.9 gm/dL (2.2-3.9) 01/27/18 05:31 Albumin/Globulin Ratio 1.4 (1.0-2.1) 01/27/18 05:31 Triglycerides 139 mg/dL (0-149) 01/25/18 14:09 Cholesterol 241 mg/dL (0-199) H 01/25/18 14:09 LDL Cholesterol Direct 164 mg/dL (0-129) H 01/25/18 14:09 HDL Cholesterol 40 mg/dL (30-70) 01/25/18 14:09 Free T4 1.01 ng/dL (0.78-2.19) 01/25/18 20:12 TSH 3rd Generation 1.82 mIU/L (0.46-4.68) 01/25/18 14:09 Urine Opiates Screen Negative (NEGATIVE) 01/25/18 20:01 Urine Methadone Screen Negative (NEGATIVE) 01/25/18 20:01 Ur Barbiturates Screen Negative (NEGATIVE) 01/25/18 20:01 Ur Phencyclidine Scrn Negative (NEGATIVE) 01/25/18 20:01 Ur Amphetamines Screen Negative (NEGATIVE) 01/25/18 20:01 U Benzodiazepines Scrn Positive (NEGATIVE) 01/25/18 20:01 U Oth Cocaine Metabols Positive (NEGATIVE) H 01/25/18 20:01 U Cannabinoids Screen Negative (NEGATIVE) 01/25/18 20:01 Blood Type B POSITIVE 01/25/18 11:54 Antibody Screen Negative 01/25/18 11:54 Attending/Attestation - Attestation I have personally seen and examined this patient.: Yes I have fully participated in the care of the patient.: Yes I have reviewed all pertinent clinical information, including history, physical exam and plan: Yes Notes (Text): 01/27/18 19:13 Medical attending: Patient was seen and examined by me. Agree with the above note by the resident The patient was not in any acute distress when I came and saw him He did well overnight We emphaized to him the importance of taking medication - in particular the brillinta as he has two cardiac stents to the LAD. He is also on ASA, statin, and ARB He is NOT on BB due to + cocaine recent use. At some point if he follows up and is shown to be clean then we can cosnider adding BB on. We emphaisized to the patient that the cocaine was placing his lift in a lot of risk. Wild Stahl
--- NOTE | 2018-01-27 17:40 | CARD ---
APPROVED REPORT Date of service: 01/25/2018 EKG Measurement Heart [id number] QTc0 <Conclusion> No QRS complexes found, no ECG analysis possible
--- NOTE | 2018-01-27 17:42 | CARD ---
APPROVED REPORT Date of service: 01/25/2018 EKG Measurement Heart [id number] <Conclusion> Normal sinus rhythm Possible Left atrial enlargement Cannot rule out Inferior infarct, age undetermined T wave abnormality, consider anterolateral ischemia /acute infarct Please repeat Abnormal ECG
--- NOTE | 2018-01-30 02:21 | CARDCATH ---
PROCEDURE DATE: 01/25/2018 PROCEDURES: 1. Left heart catheterization. 2. Coronary angiogram. 3. Left anterior descending coronary artery balloon angioplasty and drug-eluting stent placement. CLINICAL INDICATIONS: 1. Code heart. 2. Acute anterior wall ST-elevation myocardial infarction. 3. Hypertension. 4. Hyperlipidemia. 5. Diabetes. REFERRING PHYSICIAN: Wild Stahl DO PERFORMING PHYSICIAN: Ash Hillman MD DESCRIPTION OF PROCEDURE: After informed consent, the patient was prepped and draped in the usual sterile fashion. A 2% lidocaine was given in the right groin for local anesthesia. Using micropuncture technique, a #6 Macedonian sheath was introduced into right common femoral artery. XB LAD 3.5 guide catheter was engaged into left main coronary artery. Contrast injected, and left coronary angiogram was done. The patient was preloaded with aspirin, Brilinta, and IV heparin. ACT was maintained above or 250. Left coronary angiogram revealed patent left main coronary artery. Left circumflex has proximal 40%, distal 60% stenosis. Obtuse marginal branches are patent. However, LAD has a proximal 99% stenosis. Mid LAD has a long 90% stenosis. Distal LAD and diagonal branches are patent. LAD threaded with run-through coronary wire. LAD proximal and mid lesions are predilated using 2.5 x 20 compliant balloon. Then, stented with a 3.0 x 34, 3.5 x 18 Resolute Emmanuel drug-eluting stents. Overlap was post dilated. Final angiographic result, there is WENDY-3 flow noted in the LAD. Right coronary artery was engaged using JR4 6-Macedonian diagnostic catheter. Right coronary artery has a proximal 99% stenosis. The patient is receiving left to right collaterals. Post procedure, Perclose suture deployed in the right groin with excellent hemostasis. IMPRESSION: 1. Status post acute anterior wall ST-elevation myocardial infarction. 2. Successful left anterior descending artery intervention with two drug-eluting stents. 3. Noncritical left coronary artery disease. 4. Nonocclusive left circumflex coronary artery disease. 5, Totally occluded right coronary artery. However, right coronary artery is receiving collaterals form the left system. Recommend dual antiplatelet therapy for 1 year. Recommend aspirin, beta tiffanie, or calcium channel blockers plus statins for life. Ash Hillman MD
== END 2018-01-27 17:00 | disposition home or self-care (01) | DRG 174 ==
LOC: C.ER 11:42 → C.9I 11:50
PROVIDERS: ADMIT Hospitalist; ATTEND Hospitalist
PROC: 027035Z Dilation of Coronary Artery, One Artery with Two Drug-eluting Intraluminal Devices, Percutaneous Approach (ICD-10-PCS; principal; 2018-01-25)
PROC: 4A023N7 Measurement of Cardiac Sampling and Pressure, Left Heart, Percutaneous Approach (ICD-10-PCS; 2018-01-25)
PROC: B2151ZZ Fluoroscopy of Left Heart using Low Osmolar Contrast (ICD-10-PCS; 2018-01-25)
PROC: B2111ZZ Fluoroscopy of Multiple Coronary Arteries using Low Osmolar Contrast (ICD-10-PCS; 2018-01-25)
DX: I21.09 ST elevation (STEMI) myocardial infarction involving other coronary artery of anterior wall (principal); I25.10 Atherosclerotic heart disease of native coronary artery without angina pectoris; I25.82 Chronic total occlusion of coronary artery; E11.9 Type 2 diabetes mellitus without complications; I10 Essential (primary) hypertension; E78.2 Mixed hyperlipidemia; F14.10 Cocaine abuse, uncomplicated; F17.210 Nicotine dependence, cigarettes, uncomplicated; Z90.49 Acquired absence of other specified parts of digestive tract; Z79.01 Long term (current) use of anticoagulants; Z83.3 Family history of diabetes mellitus

== ENCOUNTER 2018-02-20 23:28 | Emergency (ER) | payer SELFPAY ==
[2018-02-20 23:29] VITALS: BMI 27.8
--- NOTE | 2018-02-21 01:08 | C.PDOC ---
History Of Present Illness 52 year old male with PMHx of cardiac STENT presents to the ED c/o persistent right upper gum bleeding for the past 3 days. Patient reports he had a stent done 3 weeks ago and was placed on Brilinta and Aspirin. . Patient denies injury, fall, trauma, rash, weakness, numbness, CP, SOB, palpitations. Time Seen by Provider: 02/20/18 23:39 Chief Complaint (Nursing): Dental Pain History Per: Patient History/Exam Limitations: no limitations Onset/Duration Of Symptoms: Days (3) Current Symptoms Are (Timing): Still Present Recent travel outside of the [place]: No Additional History Per: Patient Past Medical History Reviewed: Historical Data, Nursing Documentation, Vital Signs Vital Signs: Last Vital Signs Temp 98.4 F 02/20/18 23:34 Pulse 68 02/20/18 23:34 Resp 18 02/20/18 23:34 BP 136/67 02/20/18 23:34 Pulse Ox 100 02/20/18 23:34 - Medical History PMH: No Chronic Diseases Denies: Chronic Kidney Disease Surgical History: Appendectomy - [facility] Procedures DILATION OF 1 COR ART WITH 2 DRUG-ELUT, PERC APPROACH (01/25/18) FLUOROSCOPY OF LEFT HEART USING LOW OSMOLAR CONTRAST (01/25/18) FLUOROSCOPY OF MULT COR ART USING L OSM CONTRAST (01/25/18) MEASURE OF CARDIAC SAMPL & PRESSURE, L HEART, PERC APPROACH (01/25/18) Family History: States: Unknown Family Hx - Social History Hx Alcohol Use: Yes Hx Substance Use: No - Immunization History Hx Tetanus Toxoid Vaccination: No Hx Influenza Vaccination: No Hx Pneumococcal Vaccination: No Review Of Systems Constitutional: Negative for: Fever, Chills ENT: Positive for: Mouth Pain Cardiovascular: Negative for: Chest Pain Respiratory: Negative for: Cough, Shortness of Breath Gastrointestinal: Negative for: Nausea, Vomiting, Abdominal Pain Skin: Negative for: Rash Neurological: Negative for: Weakness, Numbness Physical Exam - Physical Exam Appears: Non-toxic, No Acute Distress Skin: Normal Color, Warm, Dry Head: Atraumatic, Normacephalic Eye(s): bilateral: Normal Inspection Oral Mucosa: Moist Tongue: No Laceration Lips: No Laceration Teeth: Loose Gingiva: Bleeding (right upper molar area) Neck: Normal ROM, Supple Cardiovascular: Rhythm Regular Respiratory: Normal Breath Sounds, No Rales, No Rhonchi, No Wheezing Gastrointestinal/Abdominal: Soft, No Tenderness, No Guarding, No Rebound Extremity: Normal ROM, No Tenderness, No Swelling Neurological/Psych: Oriented x3, Normal Speech, Normal Cognition Gait: Steady ED Course And Treatment O2 Sat by Pulse Oximetry: 100 (ON RA) Pulse Ox Interpretation: Normal Progress Note: There is no evidence of petechia. The patient has had no bleeding in the ED. The patient states that he has had bleeding gums before starting the brilinta and Aspirin. Patient was instructed that the bleeding is most likely secondary to gingivitis and to follow up with the dentist within 2-3 days. Disposition - Disposition Referrals: Juan Antonio Stringer DMD [Staff Provider] - Lamar Reyes DMD [Staff Provider] - Disposition: HOME/ ROUTINE Disposition Time: :23 Condition: STABLE Additional Instructions: Follow up with the dentist within 1-2 days. Return if worsened. Prescriptions: Chlorhexidine 0.12% [Peridex] 15 ml MM BID #1 bottle Instructions: Tooth Decay, Adult, Gingivitis (DC) Forms: [employer] (Wolof) - Clinical Impression Clinical Impression: Dental caries, Gingivitis - PA / RELATIONS SPECIALIST / Resident Statement MD/DO has reviewed & agrees with the documentation as recorded. - Scribe Statement The provider has reviewed the documentation as recorded by the Scribe Giancarlo Monroy All medical record entries made by the Scribe were at my direction and personally dictated by me. I have reviewed the chart and agree that the record accurately reflects my personal performance of the history, physical exam, medical decision making, and the department course for this patient. I have also personally directed, reviewed, and agree with the discharge instructions and disposition.
[2018-02-21 01:42] VITALS: BP 133/70; PULSE 74; RESP 17; TEMP 97.9
[2018-02-21 05:32] VITALS: O2SAT 100
== END 2018-02-21 01:49 | disposition home or self-care (01) ==
LOC: SUPCPDRO 23:28 → C.ER 23:28
DX: K05.10 Chronic gingivitis, plaque induced (principal); K02.9 Dental caries, unspecified